=== PATIENT | female | born 1950 | race Caucasian/White ===

== ENCOUNTER 2019-10-03 14:11 | Outpatient (CLI) | payer OTHER, SELFPAY ==
--- NOTE | 2019-10-03 14:30 | XR_ITS ---
WS: [id number] ABDOMEN KUB CLINICAL INFORMATION: Renal/ureteral calculi. COMPARISON: CT 03/26/2019 and 05/21/2019 FINDINGS: Mild lumbar curve convex right. Cholecystectomy clips. Previously described left staghorn calculus no t seen today. No definite visualized renal or parenchymal calculi today. XR/XR KUB [id number] Impression: No definite renal or ureteral calculi
== END 2019-10-03 14:12 | disposition home or self-care (01) ==
LOC: RADWPI 14:17
PROVIDERS: Family Provider Family Medicine; PCP Family Medicine; Visit Provider Urology
DX: N20.0 Calculus of kidney (principal)
CPT/HCPCS: 74018; 81001

== ENCOUNTER → 2020-01-06 10:43 | Outpatient (BNVA) | payer OTHER, SELFPAY | PROVIDERS: Family Provider Family Medicine; PCP Family Medicine; Visit Provider Urology | DX: N20.9 Urinary calculus, unspecified (principal) | CPT/HCPCS: 80048; 81003; 82131; 82140; 82340; 82436; 82507; 82570; 83735; 83935; 84100; 84300; 84550 ==

== ENCOUNTER → 2020-02-10 07:59 | Outpatient (BNVA) | payer OTHER, SELFPAY | PROVIDERS: Family Provider Family Medicine; PCP Family Medicine; Visit Provider Urology | DX: Z01.89 Encounter for other specified special examinations (principal) | CPT/HCPCS: 81003; 82131; 82140; 82340; 82436; 82507; 82570; 83735; 83935; 84300 ==

== ENCOUNTER 2020-03-23 09:57 | Outpatient (CLI) | payer OTHER, SELFPAY ==
--- NOTE | 2020-03-23 09:45 | XR_ITS ---
WS: [id number] XR KUB [id number] REASON FOR EXAM: stone FINDINGS: The examination is unchanged compared to 10/03/2019. No renal calculi are identified. No other acute abnormality. XR/XR KUB 72051 IMPRESSION: No interval change compared to the previous examination. No renal calculi noted .
== END 2020-03-23 09:58 | disposition home or self-care (01) ==
PROVIDERS: PCP Family Medicine; Visit Provider Urology
DX: N20.9 Urinary calculus, unspecified (principal)
CPT/HCPCS: 74018; 81001

== ENCOUNTER 2020-04-03 12:35 | Outpatient (CLI) | payer OTHER, SELFPAY ==
--- NOTE | 2020-04-03 12:48 | USCV_ITS ---
Gavi Lama Age: 70 Gender: F : 1950 Exam Date: 04/03/2020 13:14 Ordering Phys: Arsenio Davila MD Technologist: Osmany Christine Exam Location: [facility]_ Indication: edema PROCEDURES: Comparison:. 05/22/19 Venous duplex imaging was performed in bilateral lower extremities. The following venous structures were evaluated: common femoral vein, profunda vein, proximal portion of the greater saphenous vein, superficial femoral vein, and the popliteal vein. In addition, the posterior tibial and peroneal trunk were evaluated. Serial compression, augmentation maneuvers, and spectral Doppler flow evaluation were performed. FINDINGS: There appears to be residual thrombus in the right popliteal vein. Slightly contracted thrombus may be subacute. All other veins imaged appear free of thrombus at this time. There is subcutaneous lower extremity edema noted. CONCLUSIONS Focal right popliteal subacute thrombus. Bilateral edema. Report called by Talon hourly shift manager, at time of exam. Dr. Gini Ayala DO (Electronically Signed) Final Date: 03 April 2020 13:48 S
== END 2020-04-03 12:36 | disposition home or self-care (01) ==
PROVIDERS: PCP Family Medicine; Visit Provider Family Medicine
DX: R60.0 Localized edema (principal); I82.431 Acute embolism and thrombosis of right popliteal vein
CPT/HCPCS: 93970

== ENCOUNTER 2020-04-16 11:54 | Outpatient (CLI) | payer OTHER, SELFPAY ==
--- NOTE | 2020-04-16 12:02 | NM_ITS ---
WS: [id number] NUCLEAR MEDICINE VENTILATION/PERFUSION LUNG SCAN HISTORY: PULMONARY EMBOLISM COMPARISON: Chest radiograph 04/16/2020. TECHNIQUE: Ventilation: 32.4 mCi of Technetium 99 DTPA aerosol inhaled. Perfusion: 4.7 mCi of technetium 99m MAA IV. Deposition of radionuclide centrally with mild heterogeneous distribution on the ventilatory portion of the scan. Radionuclide extends into the stomach due to contamination. Very minimal asymmetric distribution of the radionuclide on perfusion. There is focal mild matched up take in the central RIGHT lung posteriorly. All areas of heterogeneity are matched. NM/NM pul vent and perfus* [id number] IMPRESSION: Low probability pulmonary embolism.
--- NOTE | 2020-04-16 12:41 | XR_ITS ---
WS: [id number] Exam: XR chest 2V* [id number] Date/Time of Exam: 04/16/2020 12:41 PM Reason For Exam: PULMONARY EMBOLISM No priors. The lungs are fully expanded and clear. Normal cardiomediastinal structures and bony elements. No ple ural effusion. XR/XR chest 2V* [id number] IMPRESSION: 1. No acute cardiopulmonary finding.
== END 2020-04-16 11:55 | disposition home or self-care (01) ==
LOC: RAD 11:59
PROVIDERS: PCP Family Medicine; Visit Provider Family Medicine
DX: I26.99 Other pulmonary embolism without acute cor pulmonale (principal)
CPT/HCPCS: 71046; 78014; A9540; A9567

== ENCOUNTER 2020-04-29 09:49 | Outpatient (CLI) | payer OTHER, SELFPAY ==
--- NOTE | 2020-04-29 10:09 | CT_ITS ---
WS: [id number] CT scan of the chest Without IV contrast, CT scan of the abdomen and pelvis without IV contrast ora l . Additional two-dimensional coronal and sagittal reconstruction was performed. 04/29/2020 Clinical Data: ? MALIGNANCY, PULMONARY EMBOLISM Comparison: CT abdomen, 03/26/2019. DLP: 2465.[address] scans at [facility] use at least one of these dose optimization techniques: automat ed exposure control; mA and/or kV adjustment per patient size (includes targeted exams where dose is matched to clinical indication); or iterative reconstruction. Findings: Chest: No nodules, masses or effusions are seen. The heart size is normal with no pericardial effusion. No pneumothorax is present. Heart is slightly enlarged. The pulmonary arterial system and thoracic aorta demonstrate no abnormalities or dilatation s. There is no axillary or significant mediastinal adenopathy. There are calcified middle mediastinal ly mph nodes. There is no hilar adenopathy. There is a small hiatal hernia. Bones of the thorax show onl y osteoarthritic changes of the thoracic vertebral bodies. Abdomen/pelvis: The liver, adrenal glands and pancreas are normal. The gallbladder is absent with clips in the fossa. There is a low-density lesion in the anterior aspect of the spleen unchanged. The right kidney is small with a cortical cyst unchanged. There are small left renal cortical cysts. The previously noted staghorn calculus is no longer present. The abdominal aorta is normal in size with minimal calcification in the wall. No appendicitis or diverticulitis is seen. Oral contrast is in the stomach, small bowel and colon, an d there is no bowel dilatation. No abscess, adenopathy, ascites, mass, obstruction or free air is see n. The bladder is unremarkable. The uterus shows a small fibroid on the right side with calcification un changed. No inguinal hernia is seen. The bones of the lower thorax, lumbar spine, pelvis, and hips are normal. CT/CT chest abd pel wo con Impression: 1. Negative for acute cardiopulmonary changes. 2. Left staghorn calculus no longer present. 3. Small right kidney with cortical cysts unchanged. 4. Cholecystectomy. 5. Probable splenic cyst unchanged. 6. Pedunculated right uterine fibroid unchanged.
[2020-04-29] MEDS: iohexol 300 mg/mL 50 mL Btl PO (10:10)
== END 2020-04-29 09:50 | disposition home or self-care (01) ==
LOC: RADWPI 09:52
PROVIDERS: PCP Family Medicine; Visit Provider Family Medicine
DX: I26.99 Other pulmonary embolism without acute cor pulmonale (principal); D25.9 Leiomyoma of uterus, unspecified; Z90.49 Acquired absence of other specified parts of digestive tract
CPT/HCPCS: 71250; 74176; Q9967

== ENCOUNTER 2020-07-01 13:55 | Outpatient (CLI) | payer OTHER, SELFPAY ==
--- NOTE | 2020-07-01 14:00 | XR_ITS ---
WS: [id number] KUB, 07/01/2020 Clinical Data: UROLITHIASIS Comparison: KUB, 03/23/2020. Findings: No abnormal intraabdominal masses or calcifications are seen. There is no dilatated small bowel or ev idence of obstruction. There is a calcification overlying the right sacrum which is probably within a uterine leiomyoma. The re are clips in the right upper quadrant from a cholecystectomy. XR/XR KUB [id number] Impression: Negative KUB.
== END 2020-07-01 13:56 | disposition home or self-care (01) ==
LOC: RAD 14:02
PROVIDERS: PCP Family Medicine; Visit Provider Nurse Practitioner Family
DX: N20.9 Urinary calculus, unspecified (principal)
CPT/HCPCS: 74018; 81003

== ENCOUNTER → 2020-07-20 11:06 | Outpatient (BNVA) | payer OTHER, SELFPAY | PROVIDERS: PCP Family Medicine; Visit Provider Surgery | DX: Z01.812 Encounter for preprocedural laboratory examination (principal); N18.9 Chronic kidney disease, unspecified | CPT/HCPCS: 87635 ==

== ENCOUNTER 2020-07-22 09:42 | Day surgery (SDC) | payer OTHER, SELFPAY ==
[2020-07-21 13:04] VITALS: BMI 39.4
[2020-07-22] VITALS (8 sets, daily range): BP systolic 101–135; BP diastolic 52–96; PULSE 63–81; RESP 16–20; TEMP 36.6–36.9; O2SAT 92–97
[2020-07-22 10:08] LABS: Glucose Point of Care 161 mg/dL (70-110)
[2020-07-22] MEDS: sodium chloride 0.9% 1,000 ML 30 ML IV (10:14)
--- NOTE | 2020-07-22 10:34 | ANES.PREANE2 ---
Pre-Anesthetic Assessment Pre-Anesthetic Assessment: Height/Weight: Height 1.63 m Weight 104.326 kg Temp Pulse Resp BP Pulse Ox 97.8 F 72 16 135/96 95 07/22/20 09:56 07/22/20 09:56 07/22/20 09:56 07/22/20 09:56 07/22/20 09:56 Preop Diagnosis: CKD Proposed Procedure: Operation Date: 07/22/20 11:10 Proposed Procedures p Laparoscopic Peritoneal Cath Inserti 50050 N18.9(Not Applicable) - Carson Park MD Familial anesthetic complications: None Was Beta Bill taken within 24 hours: N/A Last intake: Intake Last Liquid Date 07/21/20 Last Liquid Time 05:30 Last Solid Date 07/21/20 Last Solid Time 22:00 Social: Social History: No alcohol and No tobacco Exam: Pre-Anes Outpt Exam: alert, oriented x 3, clear to auscultation bilaterally and regular rate & rhythm Airway: Cervical ROM: WNL MP: 3 Dentition: Full Pulmonary: Pulmonary: SOB Comments: O2 2 L prn NC CV/HEM: CV/HEM: DVT (elquis on monday) and HTN : : Chronic renal failure Metabolic: Metabolic: DM and Morbid obesity Anesthetic Plan: ASA status: 4 Anesthesia: General Risk of > 500 ml blood loss (7ml/kg in children): No Meds/Allergies Current Medications: Current Medications Generic Name Dose Route Start Last Admin Trade Name Freq PRN Reason Stop Dose Admin Sodium Chloride 1,000 mls @ 30 ml s/hr 07/22/20 10:00 07/22/20 10:14 Sodium Chloride 0.9% IV 07/23/20 09:59 30 mls/hr .Q24H MAG Administration PFSH Anesthesia PFSH: Medical History (Updated 07/13/20 @ 14:45 by Carson Park MD) Bilateral ureteral calculi Chronic anticoagulation Diabetes DVT (deep venous thrombosis) (~02/2020) HTN (hypertension), benign Staghorn calculus Urolithiasis Surgical History (Updated 07/13/20 @ 09:40 by Carson Park MD) History of removal of calculus of renal pelvis through percutaneous nephrostomy Hx of cholecystectomy S/P ureteral stent placement CYSTOSCOPY, URETEROSCOPY.LASER LITHOTRIPSY Status post colonoscopy (~03/2020) Status post laser lithotripsy of ureteral calculus Family History Father , AT AGE 84 CAD (coronary artery disease) Mother Hypertension Social History Smoking and tobacco status: never smoked Alcohol intake: never Marital status: Current occupational status: employed History of recent travel: No Data Anesthesia Other Labs: Laboratory Results - last 48 hr 07/22/20 10:05 POC Glucose 161 H Cardiac Studies: No Data to Display
--- NOTE | 2020-07-22 11:28 | W.PM.OPSUD ---
Surgery/Procedure H&P Update DATE OF PROCEDURE: July 22, 2020 DATE H&P PERFORMED: 07/13/20 H&P UPDATE INFORMATION: I have reviewed H&P completed within last 30 days, I have examined patient prior to procedure and No changes to prior documentation PREOP DIAGNOSIS: CKD PLANNED PROCEDURE: Operation Date: 07/22/20 11:10 Proposed Procedures p Laparoscopic Peritoneal Cath Inserti 97394 N18.9(Not Applicable) - Carson Park MD
[2020-07-22] MEDS: heparin, porcine 1,000 unit/mL INJ 10 mL 10000 UNIT IRRIGATION (13:50)
--- NOTE | 2020-07-22 14:14 | P.PCN_ITS ---
PACU note PACU note: VSS, Good respiratory effort, report to DRY PLASTERER Post-Anesthesia Exam: awake
--- NOTE | 2020-07-22 14:14 | PM.PACU ---
PACU note PACU note: VSS, Good respiratory effort, report to IP [place] Post-Anesthesia Exam: awake
[2020-07-22] MEDS: HYDROcodone-acetaminophen 5-325 mg Tablet 1 TAB PO (14:46)
--- NOTE | 2020-07-23 16:34 | PM.OP ---
Operative Report Date of procedure: July 22, 2020 Pre-op Diagnosis: CKD Post-op diagnosis: same Procedure Done: Laparoscopic placement of peritoneal dialysis catheter Pathology: none sent Surgeon: Carson Park Anesthesia: General Condition: stable Disposition: PACU Procedure: The patient was taken to the operating room and intubated under general anesthesia after IV antibiotic had been administered. The abdomen was prepped and draped in a sterile manner. Using 15 blade a 1 cm incision was made in the left upper quadrant and a Veress needle introduced to create 15 mm of pneumoperitoneum. Using Optiview technique, a 5 mm port was placed and a 5 mm 30? scope was introduced. Another 5 mm port was placed in the left lower quadrant at the level of the umbilicus in the midclavicular line. The pigtail peritoneal dialysis catheter was placed on the abdominal wall and the position marked, an introducer needle was passed through the abdominal wall to the right of the midline inferior to the umbilicus, guidewire passed through the introducer needle, the needle was removed and a dilator sheath was placed over the guidewire and inner dilator and guidewire was removed. The pigtail catheter was introduced as the peel-away sheath was removed with the tip of the catheter in the pelvis and the cuff within the rectus muscle. The catheter was tunneled proximally to exit in the right upper quadrant. A subcutaneous pocket was created. The catheter was attached to a saline bag and there was good inflow and outflow noted. 20 mL of 1:10,000 heparin was injected into the tube. The ports were removed under direct visualization and there was no bleeding from the port sites. The skin at the 5 mm port sites were closed using 4-0 Monocryl and Dermabond. Sterile dressings were applied at the catheter site. The patient was intubated and transferred to recovery room in stable condition. T
== END 2020-07-22 15:45 | disposition home or self-care (01) ==
PROVIDERS: PCP Family Medicine; Visit Provider Surgery
PROC: 0WHG43Z Insertion of Infusion Device into Peritoneal Cavity, Percutaneous Endoscopic Approach (ICD-10-PCS; CPT 49324; principal; 2020-07-22 11:10)
DX: E11.22 Type 2 diabetes mellitus with diabetic chronic kidney disease (principal); I12.9 Hypertensive chronic kidney disease with stage 1 through stage 4 chronic kidney disease, or unspecified chronic kidney disease; N18.9 Chronic kidney disease, unspecified; Z86.718 Personal history of other venous thrombosis and embolism; Z79.01 Long term (current) use of anticoagulants; E66.01 Morbid (severe) obesity due to excess calories; Z68.39 Body mass index [BMI] 39.0-39.9, adult; Z79.4 Long term (current) use of insulin
CPT/HCPCS: 49324; 12345; 36416; 82962; C1750; J0330; J0690; J1100; J1644; J2250; J2405; J2704; J2710; J3010; J3490; J7030

== ENCOUNTER 2021-01-08 08:23 | Outpatient (CLI) | payer MEDICARE, BC, SELFPAY ==
--- NOTE | 2021-01-08 08:29 | USCV_ITS ---
Gavi Lama Age: 70 Gender: F : 1950 Exam Date: 01/08/2021 08:41 Ordering Phys: Arsenio Davila MD Technologist: Jhony Abraham Exam Location: [facility] Indication: TIA Risk Factors: DIABETIC Previous Vascular Surgery: Right Brachial BP: / Left Brachial BP: / Right Left Velocity (cm/s) Spectral Plaque Velocity (cm/s) Spectral Plaque Syst/Diast Broadening Syst/Diast Broadening 81.60/ 24.30 Prox CCA 81.70 / 24.90 100.30/30.90 Mid CCA 77.00 / 21.30 97.00/ 24.30 Distal CCA 77.00 / 27.20 67.60/ 20.20 Prox ICA 77.00 / 26.00 78.10/ 27.40 Mid ICA 82.90 / 30.80 80.10/ 26.40 Distal ICA 67.50 / 17.80 137.80 ECA 84.10 0.80 ICA/CCA 1.01 Antegrade Vertebral Antegrade 57.80/ 18.30 cm/s 37.80/ 10.40 cm/s Tri Subclavian Tri 52.70 93.20 CONCLUSIONS Right ICA stenosis <50%. Left ICA stenosis <50%. Normal antegrade Doppler flow noted in the right vertebral artery. Normal antegrade Doppler flow noted in the left vertebral artery. Aren Gaines MD (Electronically Signed) Final Date: 08 January 2021 10:27 S
== END 2021-01-08 08:24 | disposition home or self-care (01) ==
LOC: RAD 08:25
PROVIDERS: PCP Family Medicine; Visit Provider Family Medicine
DX: G45.9 Transient cerebral ischemic attack, unspecified (principal); E11.9 Type 2 diabetes mellitus without complications
CPT/HCPCS: 93880

== ENCOUNTER 2021-02-10 13:11 | Outpatient (CLI) | payer MEDICARE, BC, SELFPAY ==
--- NOTE | 2021-02-10 13:21 | MM_ITS ---
WS: [id number] Exam: [place] [id number] Date/Time of Exam: 02/10/2021 1:33 PM Reason For Exam: SCREENING VIEWS: MLO and CC views both breasts. Comparison made with prior exam of 11/23/2010. Findings: There was no sign of mass, architectural distortion or suspicious calcification in either breast. Fa [place]ty MM/[place] [id number] Impression: BI-RADS: 2-Benign FOLLOW-UP: 1 Year Follow-up This mammogram was also analyzed by the Computer Aided Detection System R2 Imag e Tool Grinder.
== END 2021-02-10 13:12 | disposition home or self-care (01) ==
LOC: RADSHAW 13:19
PROVIDERS: PCP Family Medicine; Visit Provider Family Medicine
DX: Z12.31 Encounter for screening mammogram for malignant neoplasm of breast (principal)
CPT/HCPCS: 77067

== ENCOUNTER 2021-07-01 13:45 | Outpatient (CLI) | payer MEDICARE, BC, SELFPAY ==
--- NOTE | 2021-07-01 14:00 | XR_ITS ---
WS: [id number] XR KUB [id number] REASON FOR EXAM: UROLITHIASIS FINDINGS: No urinary tract calculi are identified. No urinary calculi or identified on the previous examination of 07/01/2020. No other significant abnormality of the abdomen. XR/XR KUB [id number] IMPRESSION: No urinary tract calculi identified.
== END 2021-07-01 13:46 | disposition home or self-care (01) ==
LOC: RAD 13:50
PROVIDERS: PCP Family Medicine; Visit Provider Urology
DX: N20.9 Urinary calculus, unspecified (principal)
CPT/HCPCS: 74018; 81003; 87086

== ENCOUNTER 2021-08-20 12:03 | Outpatient (CLI) | payer MEDICARE, BC, SELFPAY ==
--- NOTE | 2021-08-20 12:17 | XR_ITS ---
WS: [id number] KUB, AP view, 08/20/2021 Clinical Data: EVAL FOR KINKING OF PD CATHETER/END STAGE OF RENAL DZ Comparison: KUB, 07/01/2021. Findings: No abnormal intraabdominal masses or calcifications are seen. There is no dilatated small bowel or ev idence of obstruction. The peritoneal dialysis catheter remains in same position. No kinking of the catheter is seen. There are clips in the right upper quadrant from a cholecystectomy. XR/XR KUB 23675 Impression: No narrowing or kinking of the peritoneal dialysis catheter.
--- NOTE | 2021-08-20 12:17 | XR_ITS ---
WS: [id number] Pelvis, AP view, 08/20/2021 Clinical Data: EVAL FOR CONSTIPATION OR OBSTRUCTION/END STAGE OF RENAL DZ Comparison: None. Findings: No fractures or dislocations are seen. The SI joints and pubic symphysis are intact. The soft tissues are not remarkable. Peritoneal dialysis catheter shows no kinking or evidence of obstruction. XR/XR pelvis 1-2V* [id number] Impression: No kinking or change in position of peritoneal dialysis catheter.
== END 2021-08-20 12:04 | disposition home or self-care (01) ==
PROVIDERS: PCP Family Medicine; Visit Provider Internal Medicine Nephrology
DX: T85.691A Other mechanical complication of intraperitoneal dialysis catheter, initial encounter (principal)
CPT/HCPCS: 72170; 74018

== ENCOUNTER 2021-08-23 09:29 | Outpatient (CLI) | payer MEDICARE, BC, SELFPAY ==
--- NOTE | 2021-08-23 09:37 | XRR_ITS ---
PROCEDURE INFORMATION: Exam: XR Abdomen Exam date and time: 08/23/2021 9:37 AM Age: 71 years old Clinical indication: Device placement; Non-vascular device; Other: Dialysis catheter not draining; Prior surgery; Additional info: Z99.2 - dependence on renal dialysis TECHNIQUE: Imaging protocol: XR of the abdomen. Views: Frontal supine view of the abdomen. 1 View. COMPARISON: CR XR KUB [id number] 08/20/2021 12:28 PM FINDINGS: Tubes, catheters and devices: A peritoneal dialysis catheter is looped in the right pelvis with tip overlying the right iliac bone. Gastrointestinal tract: Nonobstructive bowel gas pattern. Intraperitoneal space: No gross free air. Organs: Probable prior cholecystectomy. Bones/joints: No gross acute fracture. XR/XR abdomen 1V* [id number] IMPRESSION: A peritoneal dialysis catheter is looped in the right pelvis with tip overlying the right iliac bone.
== END 2021-08-23 09:30 | disposition home or self-care (01) ==
LOC: RAD 09:32
PROVIDERS: PCP Family Medicine; Visit Provider Surgery
DX: E11.65 Type 2 diabetes mellitus with hyperglycemia (principal); E11.22 Type 2 diabetes mellitus with diabetic chronic kidney disease; N18.6 End stage renal disease; E78.2 Mixed hyperlipidemia; Z79.4 Long term (current) use of insulin
CPT/HCPCS: 74018; 87635; 99204

== ENCOUNTER 2021-08-25 10:59 | Day surgery (SDC) | payer MEDICARE, BC, SELFPAY ==
[2021-08-24 13:24] VITALS: BMI 40.1
--- NOTE | 2021-08-25 11:05 | W.PM.OPSUD ---
Surgery/Procedure H&P Update DATE OF PROCEDURE: August 25, 2021 DATE H&P PERFORMED: 08/23/21 H&P UPDATE INFORMATION: I have reviewed H&P completed within last 30 days, I have examined patient prior to procedure and No changes to prior documentation PREOP DIAGNOSIS: Nonfunctioning peritoneal dialysis catheter PLANNED PROCEDURE: Operation Date: 08/25/21 12:30 Proposed Procedures p Laparoscopy Diagnostic 19566/43664/z99.2(Not Applicable) - Carson Park MD s Possible Peritoneal Catheter exchange(Not Applicable) - Carson Park MD
[2021-08-25 11:15] VITALS: BP 138/70; PULSE 70; RESP 18; TEMP 37.1; O2SAT 97
--- NOTE | 2021-08-25 11:26 | ANES.PREANE2 ---
Pre-Anesthetic Assessment Height/Weight: Height 1.6 m Weight 102.965 kg Temp Pulse Resp BP Pulse Ox 98.7 F 70 18 138/70 97 08/25/21 11:15 08/25/21 11:15 08/25/21 11:15 08/25/21 11:15 08/25/21 11:15 Preop Diagnosis: Nonfunctioning peritoneal dialysis catheter Operation Date: 08/25/21 12:30 Proposed Procedures p Laparoscopy Diagnostic 20745/67528/z99.2(Not Applicable) - Carson Park MD s Possible Peritoneal Catheter exchange(Not Applicable) - Carson Park MD Familial anesthetic complications: None Was Beta Bill taken within 24 hours: N/A Was Clonidine taken within 24 hours: N/A Social No alcohol and No tobacco Exam alert, oriented x 3, clear to auscultation bilaterally and regular rate & rhythm Airway Submandibular: within normal limits Cervical ROM: within normal limits Mallampati: Class II Dentition: chipped History/ROS No significant complaints Pulmonary None reported CV/HEM Hypertension DVT hx on apixaban last dose 08/23/2021 Chronic Renal Failure Nephrolithiasis Hepatic None reported GI None reported Metabolic Diabetes Mellitus [facility] None reported Neuropsych None reported Anesthetic Plan ASA status: 3 Anesthesia: Anesthesia Evaluation and General Other: We discussed risk and benefits of general anesthesia including PONV, sore throat (sometimes severe), corneal abrasion, positioning and peripheral nerve injuries, life threatening allergic reaction, post operative ICU admission requiring prolonged intubation, stroke, heart attack, , and rare incidences of recall. Patient consents to proceed with general anesthesia. Risk of > 500 ml blood loss (7ml/kg in children): No Medications/Allergies Home Medications Medication Instructions Recorded Confirmed Last Taken Type apixaban 5 mg tablet (Eliquis) 5 mg PO BID 10/03/19 08/24/21 08/22/21 History docusate sodium 100 mg capsule See Rx Instructions .ROUTE 04/01/21 08/25/21 08/24/21 Rx (Stool Softener) .COMPLEX #30 each bumetanide 2 mg tablet 2 mg PO BID 07/01/21 08/25/21 08/24/21 History escitalopram oxalate 10 mg tablet 10 mg PO DAILY 07/01/21 08/25/21 08/24/21 History insulin glargine 100 unit/mL (3 70 unit SUBCUT BID ml 07/01/21 08/25/21 08/24/21 History mL) subcutaneous pen (Lantus Solostar U-100 Insulin) metolazone 5 mg tablet 5 mg PO .mon and thurs tab 07/01/21 08/25/21 08/24/21 History spironolactone 50 mg tablet 100 mg PO DAILY tab 07/01/21 08/25/21 08/24/21 History vit B,C-folic ac 800 mcg-zinc 12.5 1 tab PO .on dialysis days tab 07/01/21 08/24/21 Unknown History mg-selen-D3 2,000 unit-vit E tablet (RenaPlex-D) atorvastatin 40 mg tablet 40 mg PO DAILY #90 tab 08/23/21 08/25/21 08/24/21 Rx hydrocodone 5 mg-acetaminophen 325 1 tab PO Q6H PRN #20 tab 08/25/21 Unknown Rx mg tablet Allergies Allergy/AdvReac Type Severity Reaction Status Date / Time No Known Allergies Allergy Verified 08/24/21 13:20 PFSH Anesthesia Medical History Bilateral ureteral calculi Chronic anticoagulation Diabetes DVT (deep venous thrombosis) (~02/2020) HTN (hypertension), benign Staghorn calculus Urolithiasis Surgical History History of removal of calculus of renal pelvis through percutaneous nephrostomy Hx of cholecystectomy Peritoneal dialysis catheter in situ (07/22/20) S/P ureteral stent placement CYSTOSCOPY, URETEROSCOPY.LASER LITHOTRIPSY Status post colonoscopy (~03/2020) Status post laser lithotripsy of ureteral calculus Family History Father , AT AGE 84 CAD (coronary artery disease) Mother Hypertension Social History Smoking and tobacco status: never smoked Alcohol intake: never Marital status: Current occupational status: retired History of recent travel: No Data Anesthesia : 08/25/21 11:39 08/25/21 11:39 Cardiac Studies: No Data to Display
--- NOTE | 2021-08-25 11:29 | ECG_ITS ---
[facility] Test Date: 2021-08-25 Pat Name: Gavi Lama Department: Room: Gender: Female Client Solutions Manager: : 1950 Requested By: Theodore Fuller Order Number: [id number] Edilberto MD: Isaac Wilcox M.D. Measurements Intervals Clute Rate: 79 P: 65 MO: 220 QRS: -18 QRSD: 83 T: 21 QT: 396 QTc: 454 Interpretive Statements SINUS RHYTHM WITH SINUS ARRHYTHMIA WITH FIRST DEGREE AV BLOCK LOW QRS VOLTAGE IN PRECORDIAL LEADS [QRS DEFLECTION < 1.0 mV IN CHEST LEADS] POSSIBLE ANTERIOR MYOCARDIAL INFARCTION , PROBABLY OLD [30 ms Q WAVE IN V3/V4, OR R < 0.2 mV IN V4] Compared to ECG 05/24/2019 14:47:46 First degree AV block now present Low QRS voltage now present Left anterior fascicular block no longer present Myocardial infarct finding still present Electronically Signed On 08-25-2021 23:08:11 ROBOTYPE OPERATOR by Isaac Wilcox M.D. [id number]
[2021-08-25 11:43] LABS: Glucose Point of Care 206 mg/dL (70-110)
[2021-08-25 11:47] LABS: Basophils # 0.1 10^3/uL (0.0-0.1); Basophils % 0.6 %; Eosinophils # 0.4 10^3/uL (0.0-0.8); Eosinophils % 3.7 %; Hematocrit 42.3 % (37.0-47.0); Hemoglobin 13.5 g/dL (11.5-15.3); Lymphocytes % 27.9 %; Mean Corpuscular HGB Conc 31.9 g/dL (30.0-36.0); Mean Corpuscular Hemoglobin 33.2 pg (28.0-34.0); Mean Corpuscular Volume 103.9 fl (81-99); Mean Platelet Volume 10.4 fL (7.4-10.4); Monocytes # 0.8 10^3/uL (0.2-0.9); Monocytes % 7.5 %; Neutrophils # 6.43 10^3/uL (1.8-7.7); Neutrophils % 59.5 %; Nucleated Red Blood Cells % 0 %; Platelet Count 337 10^3/cmm (130-400); Red Blood Count 4.07 10^6/uL (4.1-5.3); Red Cell Distribution Width 14.8 % (12.1-15.1); White Blood Count 10.8 10^3/uL (4.0-10.0)
[2021-08-25] MEDS: insulin regular-human 100 units/1 mL 4 UNIT IVP (11:51)
[2021-08-25] MEDS: sodium chloride 0.9% 1,000 ML 30 ML IV (12:04)
[2021-08-25] MEDS: heparin, porcine 1,000 unit/mL INJ 10 mL 10000 UNIT INJECTION (13:00)
[2021-08-25 13:33] VITALS: BP 135/78; PULSE 90; RESP 16; TEMP 36.4; O2SAT 90
[2021-08-25 13:38] VITALS: BP 130/79; PULSE 80; RESP 20; O2SAT 93
[2021-08-25 13:43] VITALS: BP 126/77; PULSE 79; RESP 21; O2SAT 95
[2021-08-25 13:49] VITALS: BP 125/76; PULSE 80; RESP 22; TEMP 36.4; O2SAT 95
[2021-08-25 13:50] LABS: Glucose Point of Care 134 mg/dL (70-110)
--- NOTE | 2021-08-25 13:51 | PM.OP ---
Operative Report Date of procedure: August 25, 2021 Pre-op diagnosis: Nonfunctioning peritoneal dialysis catheter Post-op diagnosis: Peritoneal dialysis catheter tip repositioned in the pelvis posterior to the uterus. The catheter itself was patent Procedure done: Diagnostic laparoscopy with repositioning of the peritoneal dialysis catheter Surgeon: Carson Park Anesthesia: General Condition: stable Disposition: PACU Procedure: The patient was taken to the operating room and placed under general anesthesia after IV antibiotic had been administered. The catheter itself was wrapped in Betadine gauze and the abdomen was prepped and draped in a sterile manner. Using a 15 blade a 1 cm incision was made in the left upper quadrant over the prior scar, subcutaneous tissue was divided and pneumoperitoneum was created using Verres needle. Using Optiview technique a 5 mm port was placed and 15 mm of pneumoperitoneum was created. Under direct visualization, another 5 mm port was placed in the left lower quadrant. The catheter tip was noted in the right lower quadrant. The catheter itself flushed easily with hep saline and the tip was repositioned within the pelvis posterior to the uterus. The catheter was attached to 100 cc saline bag which drained well under gravity. The catheter was finally flushed with 5 cc of 1: 1000 heparin. Both ports were removed under direct visualization after pneumoperitoneum was released. The subcutaneous tissues were approximated using interrupted 3-0 Vicryl suture and skin was closed using a running subcuticular 4-0 Monocryl suture and Dermabond. 10 cc of 0.5% Marcaine was infiltrated at the incision sites. The patient was extubated and transferred to recovery room in stable condition.
[2021-08-25 13:54] VITALS: BP 116/71; PULSE 76; RESP 20; TEMP 36.4; O2SAT 92
--- NOTE | 2021-08-25 13:57 | ANE.PACU2 ---
Inpatient post-anesthesia follow up: Airway intact: Yes Vital signs: Temperature 97.6 F Pulse Rate 76 Respiratory Rate 20 Blood Pressure 116/71 Pulse Oximetry 92 Oxygen Delivery Me thod Room Air Oxygen Flow Rate 8 Fraction of Inspir ed Oxygen Hydration adequate: Yes Nausea and vomiting: No Pain level: 1 Mental status: Baseline
[2021-08-25] MEDS: HYDROcodone-acetaminophen 5-325 mg Tablet 1 TAB PO (14:30)
== END 2021-08-25 14:51 | disposition home or self-care (01) ==
PROVIDERS: Anesthesiology; PCP Family Medicine; Visit Provider Surgery
PROC: (CPT 49320; principal; 2021-08-25 12:30)
DX: T85.611A Breakdown (mechanical) of intraperitoneal dialysis catheter, initial encounter (principal); I10 Essential (primary) hypertension; Z86.718 Personal history of other venous thrombosis and embolism; E11.9 Type 2 diabetes mellitus without complications; Z79.4 Long term (current) use of insulin
CPT/HCPCS: 49325; 36415; 36416; 82962; 85025; 93005; J0330; J0690; J1100; J1644; J1815; J2405; J2704; J3010; J3490; J7030

== ENCOUNTER → 2021-11-25 13:35 | Outpatient (BNVA) | payer MEDICARE, BC, SELFPAY | PROVIDERS: PCP Family Medicine; Visit Provider Internal Medicine | DX: E11.65 Type 2 diabetes mellitus with hyperglycemia (principal); E11.22 Type 2 diabetes mellitus with diabetic chronic kidney disease; N18.6 End stage renal disease; E78.2 Mixed hyperlipidemia; Z79.4 Long term (current) use of insulin | CPT/HCPCS: 99215 ==

== ENCOUNTER 2022-02-24 10:02 | Outpatient (CLI) | payer MEDICARE, BC, SELFPAY ==
--- NOTE | 2022-02-24 10:07 | MM_ITS ---
WS: [id number] Bilateral screening 3D tomosynthesis digital mammogram, 02/24/2022 Clinical Data: SCREENING Comparison: 02/10/2021, 11/23/2010. Findings: The breast parenchymal pattern shows fibroglandular tissue. No spiculated masses or clustered calcifi cations are seen. There are no secondary signs of carcinoma. There are mole markers on both breasts. MM/[place] [id number] Impression: 1. Negative bilateral mammogram unchanged. 2. Recommend annual screening mammograms. BIRADS: 1-Negative FOLLOW UP: 1 Year Follow-up The CAD mechanical car checker was used.
== END 2022-02-24 10:03 | disposition home or self-care (01) ==
LOC: RAD 10:04
PROVIDERS: PCP Family Medicine; Visit Provider Family Medicine
DX: Z12.31 Encounter for screening mammogram for malignant neoplasm of breast (principal)
CPT/HCPCS: 77063; 77067

== ENCOUNTER → 2022-03-01 12:52 | Outpatient (BNVA) | payer MEDICARE, BC, SELFPAY | PROVIDERS: PCP Family Medicine; Visit Provider Internal Medicine | DX: E11.65 Type 2 diabetes mellitus with hyperglycemia (principal); E11.22 Type 2 diabetes mellitus with diabetic chronic kidney disease; N18.6 End stage renal disease; E78.2 Mixed hyperlipidemia; Z79.4 Long term (current) use of insulin | CPT/HCPCS: 99214 ==

== ENCOUNTER → 2022-04-01 09:03 | Outpatient (BNVA) | payer MEDICARE, BC, SELFPAY | PROVIDERS: PCP Family Medicine; Visit Provider Internal Medicine | DX: E11.22 Type 2 diabetes mellitus with diabetic chronic kidney disease (principal); E11.65 Type 2 diabetes mellitus with hyperglycemia; E78.2 Mixed hyperlipidemia; N18.6 End stage renal disease; Z79.4 Long term (current) use of insulin | CPT/HCPCS: 99214 ==

== ENCOUNTER → 2022-05-31 13:22 | Outpatient (BNVA) | payer MEDICARE, BC, SELFPAY | PROVIDERS: PCP Family Medicine; Visit Provider Internal Medicine | DX: E11.65 Type 2 diabetes mellitus with hyperglycemia (principal); E11.22 Type 2 diabetes mellitus with diabetic chronic kidney disease; E78.2 Mixed hyperlipidemia; N18.6 End stage renal disease; Z79.4 Long term (current) use of insulin | CPT/HCPCS: 99214 ==

== ENCOUNTER → 2022-06-21 08:37 | Outpatient (BNVA) | payer MEDICARE, BC, SELFPAY | PROVIDERS: PCP Family Medicine; Visit Provider Internal Medicine | DX: E11.65 Type 2 diabetes mellitus with hyperglycemia (principal); E11.22 Type 2 diabetes mellitus with diabetic chronic kidney disease; E78.2 Mixed hyperlipidemia; N18.6 End stage renal disease; Z79.4 Long term (current) use of insulin | CPT/HCPCS: 99214 ==

== ENCOUNTER → 2022-07-06 15:08 | Outpatient (BNVA) | payer MEDICARE, BC, SELFPAY | PROVIDERS: PCP Family Medicine; Visit Provider Surgery | DX: Z87.448 Personal history of other diseases of urinary system (principal) | CPT/HCPCS: 99213 ==

== ENCOUNTER 2022-07-18 12:02 | Outpatient (CLI) | payer MEDICARE, BC, SELFPAY ==
[2022-07-18 13:03] LABS: Basophils # 0.1 10^3/uL (0.0-0.1); Basophils % 0.5 %; Eosinophils # 0.4 10^3/uL (0.0-0.8); Eosinophils % 3.5 %; Hematocrit 45.6 % (37.0-47.0); Hemoglobin 13.9 g/dL (11.5-15.3); Lymphocytes # 2.4 10^3/uL (0.8-4.8); Lymphocytes % 20.4 %; Mean Corpuscular HGB Conc 30.5 g/dL (30.0-36.0); Mean Corpuscular Hemoglobin 32.1 pg (28.0-34.0); Mean Corpuscular Volume 105.3 fl (81-99); Monocytes # 0.7 10^3/uL (0.2-0.9); Monocytes % 6.3 %; Neutrophils % 68.8 %; Nucleated Red Blood Cells % 0 %; Platelet Count 257 10^3/cmm (130-400); Red Blood Count 4.33 10^6/uL (4.1-5.3); Red Cell Distribution Width 14.9 % (12.1-15.1); White Blood Count 11.5 10^3/uL (4.0-10.0)
[2022-07-18 13:15] LABS: Albumin Level 3.9 g/dL (3.5-5.2); Anion Gap 15.7 (5-19); Blood Urea Nitrogen 29 mg/dL (8-23); Carbon Dioxide 29 mmol/L (22-29); Chloride 101 mmol/L (98-107); Glomerular Filtration Rate 24.6 mL/min (90-130); Glucose 324 mg/dL (65-115); Phosphorus 2.5 mg/dL (2.5-4.5); Potassium 4.7 mmol/L (3.5-5.1); Sodium 141 mmol/L (136-145)
[2022-07-18 13:18] LABS: Creatinine Urine, Random 34 mg/dL (28-217); Microalbum Creatinine Ratio Ur 29 mg/dL (0-20); Microalbumin Random Urine 1 ug/dL (0-20)
[2022-07-18 13:27] LABS: Calcium 9.1 mg/dL (8.5-10.5)
[2022-07-18 13:34] LABS: Parathyroid Hormone 135.7 pg/mL (15-65)
[2022-07-19 07:39] LABS: Alanine Aminotransferase 15 U/L (0-33); Albumin Level 3.8 g/dL (3.5-5.2); Alkaline Phosphatase 90 U/L (35-105); Aspartate Amino Transferase 16 U/L (0-32); Blood Urea Nitrogen 30 mg/dL (8-23); Calcium 8.9 mg/dL (8.5-10.5); Carbon Dioxide 28 mmol/L (22-29); Chloride 100 mmol/L (98-107); Chol HDL Ratio 3.83 mg/dL (0.0-4.40); Cholesterol 153 mg/dL (0-200); Globulin 3.2 g/dL (1.3-4.6); Glomerular Filtration Rate 24.6 mL/min (90-130); Glucose 329 mg/dL (65-115); HDL Cholesterol 40 mg/dL (60-100); LDL Cholesterol Calculated 54 mg/dL (50-129); LDL HDL Ratio 1.35 RATIO (0.00-3.22); Osmolality Calculated 309 mOsm/kg (285-295); Sodium 140 mmol/L (136-145); Total Bilirubin 0.4 mg/dL (0.15-1.2); Triglycerides 296 mg/dL (0-150)
[2022-07-19 07:40] LABS: Anion Gap 17.3 (5-19); Estmated Average Glucose 203; Hemoglobin A1C 8.7 % (4.0-6.0); Potassium 5.3 mmol/L (3.5-5.1)
== END 2022-07-18 12:03 | disposition home or self-care (01) ==
LOC: LAB 12:07
PROVIDERS: Internal Medicine; PCP Family Medicine; Visit Provider Internal Medicine
DX: E11.65 Type 2 diabetes mellitus with hyperglycemia (principal); E78.2 Mixed hyperlipidemia; I10 Essential (primary) hypertension; N18.4 Chronic kidney disease, stage 4 (severe)
CPT/HCPCS: 36415; 80053; 80061; 80069; 82044; 82310; 83036; 83970; 85025

== ENCOUNTER 2022-07-26 11:44 | Outpatient (CLI) | payer MEDICARE, BC, SELFPAY ==
--- NOTE | 2022-07-26 11:51 | XRR_ITS ---
PROCEDURE INFORMATION: Exam: XR Chest Exam date and time: 07/26/2022 12:09 PM Age: 72 years old Clinical indication: Shortness of breath; Additional info: Hypoxia TECHNIQUE: Imaging protocol: Radiologic exam of the chest. Views: 2 views. COMPARISON: [place] [id number] 04/29/2020 11:35 AM 2. CR XR chest 2V* [id number] 04/16/2020 1:01 PM FINDINGS: Lungs: There is focal enlargement of the right hilum. Pleural spaces: There is no pleural effusion or pneumothorax. Heart/Mediastinum: Cardiomediastinal contours are otherwise unremarkable. There is no consolidation. Bones/joints: Bones are unremarkable. XR/XR chest 2V* [id number] IMPRESSION: 1. No acute findings. 2. Focal right hilar enlargement. Possible mass, lymphadenopathy or enlarged pulmonary artery. This finding is more apparent than on 04/16/2020 chest radiograph and no correlative abnormality is identified on 04/29/[address] Recommend nonemergent chest CT follow-up.
== END 2022-07-26 11:45 | disposition home or self-care (01) ==
LOC: RAD 11:47
PROVIDERS: PCP Family Medicine; Visit Provider Family Medicine
DX: R09.02 Hypoxemia (principal)
CPT/HCPCS: 71046

== ENCOUNTER 2022-08-22 11:51 | Outpatient (CLI) | payer MEDICARE, BC, SELFPAY ==
[2022-08-22 12:32] LABS: Basophils % 0.4 %; Eosinophils # 0.3 10^3/uL (0.0-0.8); Eosinophils % 3.1 %; Hematocrit 45.6 % (37.0-47.0); Hemoglobin 13.8 g/dL (11.5-15.3); Lymphocytes # 1.9 10^3/uL (0.8-4.8); Lymphocytes % 20.2 %; Mean Corpuscular HGB Conc 30.3 g/dL (30.0-36.0); Mean Corpuscular Hemoglobin 30.9 pg (28.0-34.0); Mean Corpuscular Volume 102.2 fl (81-99); Mean Platelet Volume 10.8 fL (7.4-10.4); Monocytes # 0.6 10^3/uL (0.2-0.9); Monocytes % 6.9 %; Nucleated Red Blood Cells % 0 %; Platelet Count 238 10^3/cmm (130-400); Red Blood Count 4.46 10^6/uL (4.1-5.3); Red Cell Distribution Width 15.1 % (12.1-15.1); White Blood Count 9.3 10^3/uL (4.0-10.0)
[2022-08-22 13:37] LABS: Parathyroid Hormone 136.2 pg/mL (15-65)
[2022-08-22 13:47] LABS: 25 Hydroxy Vitamin D 45 ng/mL (30-100); Albumin Level 3.7 g/dL (3.5-5.2); Anion Gap 13.7 (5-19); Blood Urea Nitrogen 29 mg/dL (8-23); Calcium 9.1 mg/dL (8.5-10.5); Carbon Dioxide 29 mmol/L (22-29); Chloride 104 mmol/L (98-107); Glomerular Filtration Rate 26.1 mL/min (90-130); Glucose 340 mg/dL (65-115); Phosphorus 3.1 mg/dL (2.5-4.5); Potassium 4.7 mmol/L (3.5-5.1); Sodium 142 mmol/L (136-145)
== END 2022-08-22 11:52 | disposition home or self-care (01) ==
PROVIDERS: PCP Family Medicine; Visit Provider Internal Medicine Nephrology
DX: N18.4 Chronic kidney disease, stage 4 (severe) (principal); D63.1 Anemia in chronic kidney disease
CPT/HCPCS: 36415; 80069; 82306; 82310; 83970; 85025

== ENCOUNTER 2022-08-23 10:49 | Outpatient (CLI) | payer MEDICARE, BC, SELFPAY ==
[2022-08-23 11:39] LABS: Creatinine Urine, Random 160 mg/dL (28-217); Microalbumin Random Urine 8 ug/dL (0-20)
[2022-08-23 11:40] LABS: Microalbum Creatinine Ratio Ur 50 mg/dL (0-20)
== END 2022-08-23 10:50 | disposition home or self-care (01) ==
LOC: LAB 10:56
PROVIDERS: Internal Medicine; PCP Family Medicine; Visit Provider Internal Medicine Nephrology
DX: E11.65 Type 2 diabetes mellitus with hyperglycemia (principal); E78.2 Mixed hyperlipidemia; N18.4 Chronic kidney disease, stage 4 (severe); D63.1 Anemia in chronic kidney disease
CPT/HCPCS: 82044

== ENCOUNTER 2022-08-23 10:59 | Outpatient (CLI) | payer MEDICARE, BC, SELFPAY ==
--- NOTE | 2022-08-23 11:00 | CT_ITS ---
WS: [id number] CT CHEST WITHOUT INTRAVENOUS CONTRAST HISTORY: Significant dyspnea and hypoxia with abnormal chest x-ray TECHNIQUE: Contiguous 5 mm axial imaging performed on the thorax. Coronal and sagittal reformats are submitted. All CT scans at [facility] use at least one of these dose optimization techniques: automated exposure control; mA and/or kV adjustment per patient size (includes targeted exams where dose is matched to clinical indication); or iterative reconstruction. CONTRAST: None DLP: 600.54 mGy.cm COMPARISON: Chest radiograph 07/26/[address] 04/29/2020. Lungs and central airway: Benign calcified granuloma LEFT lower lobe. There is mild pulmonary congest ion. No pneumonia. Pleura: Normal. No pleural effusion. Heart and pericardium: Mild enlargement of the heart. There is mild fat stranding around the heart wh ich is secondary to cardiac motion. No effusion. Mediastinum and supa: Fullness at the RIGHT hilum is reidentified as seen on the recent chest radiogr aph. Without IV contrast cannot exclude small nodes. Majority of fullness is related to prominent hil ar structures. There is asymmetric enlargement of the RIGHT pulmonary arteries as compared to the LEF T. Very similar to the prior study. Vessels: Mild atherosclerosis aorta. No aneurysm. Pulmonary artery size is 3.4 cm. Chest wall and lower neck: Mild thyromegaly. Upper abdomen: Prior cholecystectomy. Low-attenuation lesion in the spleen measures 2.5 x 2.1 cm. Not ed on the prior study also. No adrenal mass. Severe atrophy RIGHT kidney. Osseous structures: Increase in thoracic kyphosis. CT/CT chest wo con [id number] IMPRESSION: 1. No pneumonia. 2. Fullness at the RIGHT hilum appears all related to prominent pulmonary david ry. Without IV contrast cannot exclude small lymph nodes. 3. Mild cardiac enlargement. 4. If there is concern for pulmonary embolism VQ scan may be beneficial if pat ient is unable to have a postcontrast examination. 5. Prior cholecystectomy.
== END 2022-08-23 11:00 | disposition home or self-care (01) ==
PROVIDERS: PCP Family Medicine; Visit Provider Family Medicine
DX: R06.00 Dyspnea, unspecified (principal); I51.7 Cardiomegaly
CPT/HCPCS: 71250

== ENCOUNTER 2022-09-05 11:55 | Outpatient (CLI) | payer MEDICARE, BC, SELFPAY ==
--- NOTE | 2022-09-05 12:00 | NM_ITS ---
WS: [id number] NUCLEAR MEDICINE LUNG VENTILATION AND PERFUSION CLINICAL INFORMATION: r/o PE TECHNIQUE: Ventilation/perfusion lung scan with 5.2 mCi MAA and 32.4 mCi technetium 99m DTPA. COMPARISON: None. FINDINGS: Patchy radiotracer deposition on the ventilatory images. Patchy radiotracer deposition along the cent ral bronchi. Numerous matched peripheral wedge-shaped perfusion defects bilaterally more prominent in the lower lobes. No definite mismatched ventilation/perfusion defects. No other suspicious findings. NM/NM pul vent and perfus* [id number] IMPRESSION: 1. Intermediate probability for pulmonary embolus. Consider further evaluation with CTA chest if renal function allows.
--- NOTE | 2022-09-05 12:15 | XR_ITS ---
WS: [id number] EXAMINATION: XR chest 2V* [id number] REASON FOR EXAM: DYSPNEA COMPARISON: 07/26/2022 ORDER DATE: 09/05/2022 12:15 PM FINDINGS: Lungs: There is focal enlargement of the right hilum. Pleural spaces: There is no pleural effusion or pneumothorax. Heart/Mediastinum: Cardiomediastinal contours are otherwise unremarkable with atherosclerotic aortic change. There is no consolidation. Bones/joints: Bones are unremarkable. XR/XR chest 2V* [id number] IMPRESSION: 1. No acute findings. No interval change from previous 2. Focal right hilar enlargement. Possible mass, lymphadenopathy or enlarged pulmonary artery. A noncontrast CT study on 08/23/2022 suggests this is due to en largement of the pulmonary artery.
== END 2022-09-05 11:56 | disposition home or self-care (01) ==
LOC: RAD 12:00
PROVIDERS: PCP Family Medicine; Visit Provider Family Medicine
DX: R06.00 Dyspnea, unspecified (principal)
CPT/HCPCS: 71046; 78014; A9540; A9567

== ENCOUNTER 2022-09-22 11:09 | Outpatient (CLI) | payer MEDICARE, BC, SELFPAY ==
[2022-09-22 12:09] LABS: Basophils % 0.5 %; Eosinophils # 0.3 10^3/uL (0.0-0.8); Eosinophils % 3.2 %; Hematocrit 46.1 % (37.0-47.0); Hemoglobin 13.6 g/dL (11.5-15.3); Lymphocytes % 22.6 %; Mean Corpuscular HGB Conc 29.5 g/dL (30.0-36.0); Mean Corpuscular Hemoglobin 30.5 pg (28.0-34.0); Mean Corpuscular Volume 103.4 fl (81-99); Mean Platelet Volume 10.7 fL (7.4-10.4); Monocytes # 0.6 10^3/uL (0.2-0.9); Neutrophils # 5.73 10^3/uL (1.8-7.7); Neutrophils % 66.4 %; Nucleated Red Blood Cells % 0 %; Platelet Count 240 10^3/cmm (130-400); Red Blood Count 4.46 10^6/uL (4.1-5.3); Red Cell Distribution Width 15.4 % (12.1-15.1); White Blood Count 8.6 10^3/uL (4.0-10.0)
[2022-09-22 12:35] LABS: Albumin Level 3.6 g/dL (3.5-5.2); Anion Gap 10.7 (5-19); Blood Urea Nitrogen 30 mg/dL (8-23); Calcium 8.5 mg/dL (8.5-10.5); Carbon Dioxide 32 mmol/L (22-29); Chloride 106 mmol/L (98-107); Glomerular Filtration Rate 29.7 mL/min (90-130); Glucose 206 mg/dL (65-115); Phosphorus 3.2 mg/dL (2.5-4.5); Potassium 4.7 mmol/L (3.5-5.1); Sodium 144 mmol/L (136-145)
== END 2022-09-22 11:10 | disposition home or self-care (01) ==
LOC: LAB 11:15
PROVIDERS: PCP Family Medicine; Visit Provider Internal Medicine Nephrology
DX: N18.4 Chronic kidney disease, stage 4 (severe) (principal)
CPT/HCPCS: 36415; 80069; 85025

== ENCOUNTER 2022-09-29 10:36 | Outpatient (CLI) | payer MEDICARE, BC, SELFPAY ==
[2022-09-29 11:42] LABS: Estmated Average Glucose 200; Hemoglobin A1C 8.6 % (4.0-6.0)
[2022-09-29 11:46] LABS: Alanine Aminotransferase 12 U/L (0-33); Albumin Level 3.5 g/dL (3.5-5.2); Alkaline Phosphatase 85 U/L (35-105); Anion Gap 13.6 (5-19); Aspartate Amino Transferase 13 U/L (0-32); Blood Urea Nitrogen 33 mg/dL (8-23); Calcium 8.7 mg/dL (8.5-10.5); Carbon Dioxide 28 mmol/L (22-29); Chloride 106 mmol/L (98-107); Chol HDL Ratio 3.67 mg/dL (0.0-4.40); Cholesterol 154 mg/dL (0-200); Globulin 3.3 g/dL (1.3-4.6); Glomerular Filtration Rate 27.8 mL/min (90-130); Glucose 272 mg/dL (65-115); HDL Cholesterol 42 mg/dL (60-100); LDL Cholesterol Calculated 67 mg/dL (50-129); Osmolality Calculated 313 mOsm/kg (285-295); Potassium 4.6 mmol/L (3.5-5.1); Sodium 143 mmol/L (136-145); Total Bilirubin 0.3 mg/dL (0.15-1.2); Total Protein 6.8 g/dL (6.6-8.7); Triglycerides 227 mg/dL (0-150)
[2022-09-29 11:52] LABS: Creatinine Urine, Random 25 mg/dL (28-217); Microalbumin Random Urine 2 ug/dL (0-20)
[2022-09-29 11:56] LABS: Microalbum Creatinine Ratio Ur 80 mg/dL (0-20)
== END 2022-09-29 10:37 | disposition home or self-care (01) ==
LOC: LAB 10:44
PROVIDERS: PCP Family Medicine; Visit Provider Internal Medicine
DX: Z01.89 Encounter for other specified special examinations (principal)
CPT/HCPCS: 36415; 80053; 80061; 82044; 83036

== ENCOUNTER → 2022-10-05 09:58 | Outpatient (BNVA) | payer MEDICARE, BC, SELFPAY | PROVIDERS: PCP Family Medicine; Visit Provider Internal Medicine | DX: E11.22 Type 2 diabetes mellitus with diabetic chronic kidney disease (principal); E11.65 Type 2 diabetes mellitus with hyperglycemia; N18.6 End stage renal disease; E78.2 Mixed hyperlipidemia; Z79.4 Long term (current) use of insulin | CPT/HCPCS: 99214 ==

== ENCOUNTER → 2022-10-24 11:34 | Outpatient (BNVA) | payer MEDICARE, BC, SELFPAY | PROVIDERS: PCP Family Medicine; Visit Provider Family Medicine | DX: R09.02 Hypoxemia (principal); N18.9 Chronic kidney disease, unspecified; R60.9 Edema, unspecified; I10 Essential (primary) hypertension; E78.2 Mixed hyperlipidemia; E11.65 Type 2 diabetes mellitus with hyperglycemia | CPT/HCPCS: 80048; 83880 ==

== ENCOUNTER 2022-11-08 13:51 | Outpatient (CLI) | payer MEDICARE, BC, SELFPAY ==
[2022-11-08 14:10] VITALS: PULSE 69; RESP 18; O2SAT 92
[2022-11-08] MEDS: albuterol 2.5 mg/3 mL Neb INHALATION (14:10)
[2022-11-08 14:15] VITALS: PULSE 72
== END 2022-11-08 13:52 | disposition home or self-care (01) ==
PROVIDERS: PCP Family Medicine; Visit Provider Family Medicine
DX: R09.02 Hypoxemia (principal); R06.00 Dyspnea, unspecified
CPT/HCPCS: 94060; 94726; 94729; J7613

== ENCOUNTER → 2022-11-09 11:07 | Outpatient (BNVA) | payer MEDICARE, BC, SELFPAY | PROVIDERS: PCP Family Medicine; Visit Provider Family Medicine | DX: R60.9 Edema, unspecified (principal); Z87.448 Personal history of other diseases of urinary system; R06.00 Dyspnea, unspecified | CPT/HCPCS: 80048; 83880 ==

== ENCOUNTER → 2022-12-12 12:29 | Outpatient (BNVA) | payer MEDICARE, BC, SELFPAY | PROVIDERS: PCP Family Medicine; Visit Provider Internal Medicine Pulmonary Disease | DX: R06.00 Dyspnea, unspecified (principal); R09.02 Hypoxemia; R60.9 Edema, unspecified; R06.02 Shortness of breath; I10 Essential (primary) hypertension | CPT/HCPCS: 36415; 80048; 82785; 83880; 86003; 99204 ==

== ENCOUNTER 2023-01-03 12:27 | Outpatient (CLI) | payer MEDICARE, BC, SELFPAY ==
--- NOTE | 2023-01-03 13:00 | USCV_ITS ---
Gavi Lama Age: 72 Gender: F : 1950 Exam Date: 01/03/2023 13:10 Ordering Phys: Edin Fine MD Technologist: Christiana Lane Exam Location: [facility] Indication: sob, kidney disease BP: 130 / 74 HR: 74 Rhythm: Sinus Technical Quality: Adequate MEASUREMENTS (Male / Female) Normal Values 2D ECHO LV Diastolic Diameter PLAX 3.9 cm 4.2 - 5.9 / 3.9 - 5.3 cm LV Systolic Diameter PLAX 2.1 cm IVS Diastolic Thickness 1.9 cm 0.6 - 1.0 / 0.6 - 0.9 cm IVS Systolic Thickness 1.9 cm LVPW Diastolic Thickness 1.5 cm 0.6 - 1.0 / 0.6 - 0.9 cm LVPW Systolic Thickness 2.2 cm LVOT Diameter 2.0 cm LV Ejection Fraction 2D Teich 77.4 % LV Ejection Fraction MOD 2C 75.7 % LV Ejection Fraction 2C AL 76.6 % LA Diameter 2.7 cm LA Width 3.9 cm LA Height 5.3 cm RA Width 2.7 cm RA Height 5.1 cm Aorta at Sinotubular Diameter 3.3 cm IVC Diameter 1.7 cm M-MODE Aortic Annulus Diameter 2.9 cm LA Ao Ratio MM 1.0 MV E Point Septal Separation 0.4 cm DOPPLER AV Peak Velocity 217.0 cm/s LVOT Peak Velocity 145.0 cm/s AV Area Cont Eq vti 2.8 cm squared AV Area Cont Eq pk 2.2 cm squared MV Peak Velocity 169.0 cm/s MV Area PHT 2.6 cm squared Mitral E to A Ratio 0.9 MV E' Velocity 63.5 cm/s Mitral E to MV E' Ratio 13.0 Mitral E to LV E' Lateral Ratio 11.2 Mitral E to LV E' Septal Ratio 15.3 TR Peak Velocity 167.0 cm/s TR Peak Gradient 11.2 mmHg Right Atrial Pressure 5.0 mmHg Pulmonary Artery Systolic Pressu 16.2 mmHg PV Peak Velocity 95.0 cm/s RV Acceleration Time 0.1 s RV Ejection Time 0.3 s RV AcT/ET 0.3 FINDINGS Left Ventricle Normal left ventricular size and systolic function, EF 75 %. Moderate left ventricular hypertrophy. No regional wall motion abnormalities. Grade I/IV diastolic dysfunction (abnormal relaxation filling pattern), normal to mildly elevated filling pressures. Right Ventricle Possibly normal RV size ejection fraction. Right Atrium Possibly of normal Left Atrium Upper limit of normal size Mitral Valve No gross abnormalities noted Aortic Valve Thickened aortic valve. Aortic valve sclerosis. Tricuspid Valve Tricuspid valve not well visualized. Pulmonic Valve Pulmonic valve not well visualized. Pericardium Normal pericardium without effusion. Aorta Normal aortic annulus size. IVC Normal inferior vena cava. CONCLUSIONS Normal left ventricular size and systolic function, EF 75 %. Moderate left ventricular hypertrophy. No regional wall motion abnormalities. Grade I/IV diastolic dysfunction (abnormal relaxation filling pattern), normal to mildly elevated filling pressures. Aortic valve sclerosis. There is no pericardial effusion. PA pressure possibly within normal limits-because of technical difficulty the Doppler signals are of suboptimal quality. Technically difficult study because of the poor ultrasonic window. No similar previous studies are available for comparison Dr Isaac Wilcox MD [facility] (Electronically Signed) Final Date: 04 January 2023 22:04 S
== END 2023-01-03 12:28 | disposition home or self-care (01) ==
PROVIDERS: PCP Family Medicine; Visit Provider Internal Medicine Pulmonary Disease
DX: I35.8 Other nonrheumatic aortic valve disorders (principal); R06.02 Shortness of breath
CPT/HCPCS: 93306

== ENCOUNTER 2023-01-06 13:40 | Outpatient (CLI) | payer MEDICARE, BC, SELFPAY ==
[2023-01-06 14:36] LABS: Alanine Aminotransferase 10 U/L (0-33); Albumin Level 3.4 g/dL (3.5-5.2); Alkaline Phosphatase 95 U/L (35-105); Anion Gap 10.9 (5-19); Aspartate Amino Transferase 11 U/L (0-32); Blood Urea Nitrogen 26 mg/dL (8-23); Calcium 8.8 mg/dL (8.5-10.5); Carbon Dioxide 31 mmol/L (22-29); Chloride 106 mmol/L (98-107); Chol HDL Ratio 3.87 mg/dL (0.0-4.40); Cholesterol 151 mg/dL (0-200); Globulin 2.4 g/dL (1.3-4.6); Glomerular Filtration Rate 27.8 mL/min (90-130); Glucose 177 mg/dL (65-115); HDL Cholesterol 39 mg/dL (60-100); LDL Cholesterol Calculated 66 mg/dL (50-129); LDL HDL Ratio 1.69 RATIO (0.00-3.22); Osmolality Calculated 305 mOsm/kg (285-295); Potassium 4.9 mmol/L (3.5-5.1); Sodium 143 mmol/L (136-145); Total Bilirubin 0.4 mg/dL (0.15-1.2); Total Protein 5.8 g/dL (6.6-8.7); Triglycerides 232 mg/dL (0-150)
[2023-01-06 14:37] LABS: Creatinine Urine, Random 126 mg/dL (28-217); Microalbumin Random Urine 8 ug/dL (0-20)
[2023-01-06 14:41] LABS: Microalbum Creatinine Ratio Ur 63 mg/dL (0-20)
[2023-01-06 15:12] LABS: Estmated Average Glucose 200; Hemoglobin A1C 8.6 % (4.0-6.0)
== END 2023-01-06 13:41 | disposition home or self-care (01) ==
LOC: LAB 13:44
PROVIDERS: PCP Family Medicine; Visit Provider Internal Medicine
DX: E11.65 Type 2 diabetes mellitus with hyperglycemia (principal); N18.6 End stage renal disease; E78.2 Mixed hyperlipidemia
CPT/HCPCS: 36415; 80053; 80061; 82044; 83036

== ENCOUNTER → 2023-01-11 10:19 | Outpatient (BNVA) | payer MEDICARE, BC, SELFPAY | PROVIDERS: PCP Family Medicine; Visit Provider Internal Medicine | DX: E11.65 Type 2 diabetes mellitus with hyperglycemia (principal); E78.2 Mixed hyperlipidemia; N18.6 End stage renal disease; I12.0 Hypertensive chronic kidney disease with stage 5 chronic kidney disease or end stage renal disease; E11.22 Type 2 diabetes mellitus with diabetic chronic kidney disease; Z79.4 Long term (current) use of insulin; R09.02 Hypoxemia; I26.99 Other pulmonary embolism without acute cor pulmonale; J82.83 Eosinophilic asthma; Z86.718 Personal history of other venous thrombosis and embolism; Z79.01 Long term (current) use of anticoagulants | CPT/HCPCS: 99214 ==

== ENCOUNTER 2023-01-23 13:37 | Outpatient (CLI) | payer MEDICARE, BC, SELFPAY ==
--- NOTE | 2023-01-23 14:15 | USCV_ITS ---
Gavi Lama Age: 73 Gender: F : 1950 Exam Date: 01/23/2023 14:05 Ordering Phys: Edin Fine MD Technologist: Osmany Christine [place] [facility] [place] Indication: pulmonary embolism BP: 148 / 78 HR: 67 Rhythm: Sinus Technical Quality: Adequate MEASUREMENTS (Male / Female) Normal Values 2D ECHO LVOT Diameter 2.0 cm LV Ejection Fraction MOD 2C 63.9 % LV Ejection Fraction 2C AL 65.4 % LA Diameter 3.8 cm LA Width 3.7 cm LA Height 5.4 cm RA Width 3.3 cm RA Height 4.2 cm Aorta at Sinotubular Diameter 1.8 cm IVC Diameter 2.0 cm M-MODE Aortic Annulus Diameter 2.6 cm LA Ao Ratio MM 1.4 MV E Point Septal Separation 0.6 cm DOPPLER AV Peak Velocity 220.3 cm/s LVOT Peak Velocity 135.0 cm/s AV Area Cont Eq vti 2.0 cm squared AV Area Cont Eq pk 1.9 cm squared MV Peak Velocity 160.0 cm/s MV Area PHT 4.6 cm squared Mitral E to A Ratio 0.6 MV E' Velocity 37.0 cm/s Mitral E to MV E' Ratio 6.4 Mitral E to LV E' Lateral Ratio 5.3 Mitral E to LV E' Septal Ratio 8.0 TR Peak Velocity 217.9 cm/s TR Peak Gradient 19.0 mmHg TR Mean Velocity 169.9 cm/s TR Mean Gradient 12.2 mmHg TR Velocity Time Integral 47.4 cm Right Atrial Pressure 3.0 mmHg Pulmonary Artery Systolic Pressu 22.0 mmHg PV Peak Velocity 110.0 cm/s RV Acceleration Time 0.1 s RV Ejection Time 0.3 s RV AcT/ET 0.2 FINDINGS Left Ventricle Left ventricle is normal in size. LV systolic function is normal with EF of 60 to 65%. No regional wall motion abnormalities are seen. Grade 1 diastolic dysfunction Right Ventricle Normal in size and function Right Atrium Normal in size. No [id number] shunt seen on bubble study. Left Atrium Normal in size Mitral Valve Structurally normal mitral valve. Mild mitral regurgitation. Aortic Valve Grossly normal. Mild aortic stenosis. Aortic valve area is 1.98 cm squared with mean gradient across aortic valve of 10 mmHg. Tricuspid Valve Mild tricuspid regurgitation. Insufficient TR jet to calculate RVSP. Pulmonic Valve Not well visualized. Pericardium Normal Aorta Normal in size IVC Appears to be normal CONCLUSIONS LV systolic function is normal with EF of 60 to 65%. Grade 1 diastolic dysfunction. No [id number] shunt seen on bubble study. Mild mitral regurgitation Mild aortic stenosis Mild tricuspid regurgitation Compared to prior echocardiogram from 01/08, mild aortic stenosis is noted. . Manuel Moran MD (Electronically Signed) Final Date: 31 January 2023 22:08 S
== END 2023-01-23 13:38 | disposition home or self-care (01) ==
PROVIDERS: PCP Family Medicine; Visit Provider Internal Medicine Pulmonary Disease
DX: I26.99 Other pulmonary embolism without acute cor pulmonale (principal); I34.0 Nonrheumatic mitral (valve) insufficiency; I35.0 Nonrheumatic aortic (valve) stenosis; I07.1 Rheumatic tricuspid insufficiency
CPT/HCPCS: C8929

== ENCOUNTER 2023-02-07 11:56 | Outpatient (CLI) | payer MEDICARE, BC, SELFPAY ==
[2023-02-07 12:32] LABS: Basophils % 0.3 %; Eosinophils # 0.1 10^3/uL (0.0-0.8); Hematocrit 44.4 % (36-47); Lymphocytes # 1.7 10^3/uL (0.8-4.8); Lymphocytes % 17.3 %; Mean Corpuscular HGB Conc 29.5 g/dL (30-55); Mean Corpuscular Hemoglobin 29.9 pg (27-33); Mean Corpuscular Volume 101.4 fl (85-98); Mean Platelet Volume 10.6 fL (7.4-10.4); Monocytes # 0.7 10^3/uL (0.2-0.9); Monocytes % 7.4 %; Neutrophils # 7.27 10^3/uL (1.8-7.7); Neutrophils % 73.7 %; Nucleated Red Blood Cells % 0 %; Platelet Count 235 10^3/cmm (157-399); Red Blood Count 4.38 10^6/uL (3.85-5.65); Red Cell Distribution Width 16.7 % (12.1-15.1); White Blood Count 9.87 10^3/uL (3.29-11.43)
[2023-02-07 12:55] LABS: Creatinine Urine, Random 144 mg/dL (28-217); Microalbumin Random Urine 17 ug/dL (0-20)
[2023-02-07 12:58] LABS: Calcium 8.5 mg/dL (8.5-10.5)
[2023-02-07 13:01] LABS: Microalbum Creatinine Ratio Ur 118 mg/dL (0-20)
[2023-02-07 13:02] LABS: Parathyroid Hormone 171.8 pg/mL (15-65)
[2023-02-07 13:19] LABS: 25 Hydroxy Vitamin D 43 ng/mL (30-100); Albumin Level 3.4 g/dL (3.5-5.2); Blood Urea Nitrogen 19 mg/dL (8-23); Calcium 8.6 mg/dL (8.5-10.5); Carbon Dioxide 32 mmol/L (22-29); Chloride 111 mmol/L (98-107); Glucose 145 mg/dL (65-115); Sodium 147 mmol/L (136-145)
== END 2023-02-07 11:57 | disposition home or self-care (01) ==
PROVIDERS: PCP Family Medicine; Visit Provider Internal Medicine Nephrology
DX: N18.4 Chronic kidney disease, stage 4 (severe) (principal); Z79.899 Other long term (current) drug therapy
CPT/HCPCS: 36415; 80069; 82044; 82306; 82310; 83970; 85025

== ENCOUNTER → 2023-03-29 13:48 | Outpatient (BNVA) | payer MEDICARE, BC, SELFPAY | PROVIDERS: PCP Family Medicine; Visit Provider Internal Medicine Pulmonary Disease | DX: R09.02 Hypoxemia (principal); R53.83 Other fatigue; J82.83 Eosinophilic asthma; I26.99 Other pulmonary embolism without acute cor pulmonale; R22.43 Localized swelling, mass and lump, lower limb, bilateral; E66.2 Morbid (severe) obesity with alveolar hypoventilation; Z68.42 Body mass index [BMI] 45.0-49.9, adult | CPT/HCPCS: 99214 ==

== ENCOUNTER 2023-04-07 13:47 | Outpatient (CLI) | payer MEDICARE, BC, SELFPAY ==
[2023-04-07 14:24] LABS: Estmated Average Glucose 180; Hemoglobin A1C 7.9 % (4.0-6.0)
[2023-04-07 14:34] LABS: Alanine Aminotransferase 15 U/L (0-33); Albumin Level 3.7 g/dL (3.5-5.2); Alkaline Phosphatase 112 U/L (35-105); Anion Gap 15.1 (5-19); Aspartate Amino Transferase 21 U/L (0-32); Blood Urea Nitrogen 53 mg/dL (8-23); Calcium 9.1 mg/dL (8.5-10.5); Carbon Dioxide 31 mmol/L (22-29); Chloride 99 mmol/L (98-107); Chol HDL Ratio 3.86 mg/dL (0.0-4.40); Cholesterol 166 mg/dL (0-200); Globulin 3.4 g/dL (1.3-4.6); HDL Cholesterol 43 mg/dL (60-100); LDL Cholesterol Calculated 66 mg/dL (50-129); LDL HDL Ratio 1.53 RATIO (0.00-3.22); Osmolality Calculated 328 mOsm/kg (285-295); Potassium 5.1 mmol/L (3.5-5.1); Sodium 140 mmol/L (136-145); Total Bilirubin 0.4 mg/dL (0.15-1.2); Total Protein 7.1 g/dL (6.6-8.7); Triglycerides 286 mg/dL (0-150)
[2023-04-07 14:46] LABS: Creatinine Urine, Random 53 mg/dL (28-217); Microalbumin Random Urine 4 ug/dL (0-20)
[2023-04-07 14:48] LABS: Microalbum Creatinine Ratio Ur 75 mg/dL (0-20)
[2023-04-07 15:05] LABS: Glucose 519 mg/dL (65-115)
== END 2023-04-07 13:48 | disposition home or self-care (01) ==
PROVIDERS: PCP Family Medicine; Visit Provider Internal Medicine
DX: E11.65 Type 2 diabetes mellitus with hyperglycemia (principal); E78.2 Mixed hyperlipidemia; E11.22 Type 2 diabetes mellitus with diabetic chronic kidney disease; N18.6 End stage renal disease
CPT/HCPCS: 36415; 80053; 80061; 82044; 83036

== ENCOUNTER → 2023-04-14 10:53 | Outpatient (BNVA) | payer MEDICARE, BC, SELFPAY | PROVIDERS: PCP Family Medicine; Visit Provider Internal Medicine | DX: E11.65 Type 2 diabetes mellitus with hyperglycemia (principal); E78.2 Mixed hyperlipidemia; N18.6 End stage renal disease; E11.22 Type 2 diabetes mellitus with diabetic chronic kidney disease; Z79.4 Long term (current) use of insulin | CPT/HCPCS: 99214 ==

== ENCOUNTER 2023-05-10 13:47 | Outpatient (CLI) | payer MEDICARE, BC, SELFPAY ==
--- NOTE | 2023-05-10 13:49 | MM_ITS ---
WS: [id number] BILATERAL 3D TOMOSYNTHESIS DIGITAL SCREENING MAMMOGRAPHY WITH CAD CLINICAL INFORMATION: SCREENING HISTORY: Screening mammogram. No current complaints. COMPARISON: 2021 TECHNIQUE: Bilateral CC and MLO views. FINDINGS: Scattered fibroglandular densities bilaterally. No suspicious focal mass, asymmetry, calcifications, or architectural distortion. No evidence of malignancy. IMPRESSION: MM/[place] [id number] BI-RADS: 1-Negative FOLLOW UP: 1 Year Follow-up Recommend return to annual screening mammography.
== END 2023-05-10 13:48 | disposition home or self-care (01) ==
LOC: RAD 13:47
PROVIDERS: PCP Family Medicine; Visit Provider Family Medicine
DX: Z12.31 Encounter for screening mammogram for malignant neoplasm of breast (principal)
CPT/HCPCS: 77063; 77067

== ENCOUNTER 2023-05-15 14:33 | Outpatient (CLI) | payer MEDICARE, BC, SELFPAY ==
[2023-05-15 15:22] LABS: Alveolar-Arterial Oxygen Gradi 2.4 mmHg (5-10); Arterial Blood Gas Hematocrit 44.8 % (37-47); Blood Gas Allen Test Pos; Blood Gas Operator Identificat glc; Blood Gas Sample Site Radial, left; Blood Gas Sample Type Arterial; Carboxyhemoglobin 1.3 %THgb (0.4-20.1); HGB O2 Sat 90.1 % (95-100); Methemoglobin 0.3 % (0.4-1.5); Oxygen Device ROOM AIR; Total Hemoglobin 14.6 g/dL (12-16)
== END 2023-05-15 14:34 | disposition home or self-care (01) ==
LOC: LAB 14:35
PROVIDERS: PCP Family Medicine; Visit Provider Internal Medicine Pulmonary Disease
DX: R09.02 Hypoxemia (principal)
CPT/HCPCS: 36600; 82810

== ENCOUNTER → 2023-05-16 13:58 | Outpatient (BNVA) | payer MEDICARE, BC, SELFPAY | PROVIDERS: PCP Family Medicine; Visit Provider Podiatrist Foot & Ankle Surgery | DX: B35.1 Tinea unguium (principal); E11.65 Type 2 diabetes mellitus with hyperglycemia; I73.9 Peripheral vascular disease, unspecified; G62.9 Polyneuropathy, unspecified; L84 Corns and callosities; E11.42 Type 2 diabetes mellitus with diabetic polyneuropathy; Z79.4 Long term (current) use of insulin | CPT/HCPCS: 11056; 11721; 99203 ==

== ENCOUNTER 2023-06-13 20:00 | Outpatient (CLI) | payer MEDICARE, BC, SELFPAY | END 2023-06-13 20:01 | disposition home or self-care (01) | LOC: SLEEP 06-14 05:54 | PROVIDERS: PCP Family Medicine; Visit Provider Internal Medicine Pulmonary Disease | DX: G47.33 Obstructive sleep apnea (adult) (pediatric) (principal); G47.36 Sleep related hypoventilation in conditions classified elsewhere; R06.83 Snoring; I10 Essential (primary) hypertension; E11.9 Type 2 diabetes mellitus without complications | CPT/HCPCS: 95810 ==

== ENCOUNTER → 2023-07-06 10:41 | Outpatient (BNVA) | payer MEDICARE, BC, SELFPAY | PROVIDERS: PCP Family Medicine; Visit Provider Internal Medicine Pulmonary Disease | DX: R09.02 Hypoxemia (principal); J82.83 Eosinophilic asthma; I26.99 Other pulmonary embolism without acute cor pulmonale; E66.2 Morbid (severe) obesity with alveolar hypoventilation; Z68.41 Body mass index [BMI] 40.0-44.9, adult; Z79.01 Long term (current) use of anticoagulants | CPT/HCPCS: 99214 ==

== ENCOUNTER 2023-07-14 14:07 | Outpatient (CLI) | payer MEDICARE, BC, SELFPAY ==
[2023-07-14 15:08] LABS: Estmated Average Glucose 212
[2023-07-14 15:20] LABS: Alanine Aminotransferase 12 U/L (0-33); Albumin Level 3.4 g/dL (3.5-5.2); Alkaline Phosphatase 102 U/L (35-105); Aspartate Amino Transferase 16 U/L (0-32); Blood Urea Nitrogen 38 mg/dL (8-23); Calcium 8.9 mg/dL (8.5-10.5); Carbon Dioxide 32 mmol/L (22-29); Chloride 94 mmol/L (98-107); Chol HDL Ratio 3.95 mg/dL (0.0-4.40); Cholesterol 158 mg/dL (0-200); Globulin 3.6 g/dL (1.3-4.6); Glucose 446 mg/dL (65-115); HDL Cholesterol 40 mg/dL (60-100); LDL Cholesterol Calculated 63 mg/dL (50-129); LDL HDL Ratio 1.58 RATIO (0.00-3.22); Osmolality Calculated 310 mOsm/kg (285-295); Sodium 136 mmol/L (136-145); Total Bilirubin 0.5 mg/dL (0.15-1.2); Triglycerides 275 mg/dL (0-150)
[2023-07-14 15:24] LABS: Anion Gap 14.7 (5-19); Potassium 4.7 mmol/L (3.5-5.1)
[2023-07-14 15:30] LABS: Creatinine Urine, Random 171 mg/dL (28-217); Microalbum Creatinine Ratio Ur 35 mg/dL (0-20); Microalbumin Random Urine 6 ug/dL (0-20)
== END 2023-07-14 14:08 | disposition home or self-care (01) ==
PROVIDERS: PCP Family Medicine; Visit Provider Internal Medicine
DX: E11.65 Type 2 diabetes mellitus with hyperglycemia (principal)
CPT/HCPCS: 36415; 80053; 80061; 82044; 83036

== ENCOUNTER → 2023-07-19 11:33 | Outpatient (BNVA) | payer MEDICARE, BC, SELFPAY | PROVIDERS: PCP Family Medicine; Visit Provider Internal Medicine | DX: E11.65 Type 2 diabetes mellitus with hyperglycemia (principal); E78.2 Mixed hyperlipidemia; N18.6 End stage renal disease; E11.22 Type 2 diabetes mellitus with diabetic chronic kidney disease; Z79.4 Long term (current) use of insulin | CPT/HCPCS: 99214 ==

== ENCOUNTER → 2023-08-07 10:47 | Outpatient (BNVA) | payer MEDICARE, BC, SELFPAY | PROVIDERS: PCP Family Medicine; Visit Provider Podiatrist Foot & Ankle Surgery | DX: B35.1 Tinea unguium (principal); E11.65 Type 2 diabetes mellitus with hyperglycemia; I73.9 Peripheral vascular disease, unspecified; G62.9 Polyneuropathy, unspecified; L84 Corns and callosities; Z79.4 Long term (current) use of insulin | CPT/HCPCS: 11056; 11721 ==

== ENCOUNTER 2023-08-10 09:43 | Outpatient (CLI) | payer MEDICARE, BC, SELFPAY ==
[2023-08-10 10:29] LABS: Basophils # 0.1 10^3/uL (0.0-0.1); Basophils % 0.6 %; Eosinophils # 0.3 10^3/uL (0.0-0.8); Eosinophils % 2.6 %; Hematocrit 50.5 % (36-47); Lymphocytes # 2.3 10^3/uL (0.8-4.8); Lymphocytes % 22.5 %; Mean Corpuscular HGB Conc 29.1 g/dL (30-55); Mean Corpuscular Hemoglobin 31.8 pg (27-33); Mean Corpuscular Volume 109.3 fl (85-98); Mean Platelet Volume 10.7 fL (7.4-10.4); Monocytes # 0.7 10^3/uL (0.2-0.9); Monocytes % 6.6 %; Neutrophils # 6.87 10^3/uL (1.8-7.7); Neutrophils % 67.1 %; Nucleated Red Blood Cells % 0.3 %; Platelet Count 229 10^3/cmm (157-399); Red Blood Count 4.62 10^6/uL (3.85-5.65); Red Cell Distribution Width 16.7 % (12.1-15.1); White Blood Count 10.24 10^3/uL (3.29-11.43)
[2023-08-10 10:52] LABS: Albumin Level 3.4 g/dL (3.5-5.2); Anion Gap 16.5 (5-19); Blood Urea Nitrogen 34 mg/dL (8-23); Calcium 8.4 mg/dL (8.5-10.5); Carbon Dioxide 29 mmol/L (22-29); Chloride 101 mmol/L (98-107); Glucose 367 mg/dL (65-115); Phosphorus 2.9 mg/dL (2.5-4.5); Potassium 4.5 mmol/L (3.5-5.1); Sodium 142 mmol/L (136-145)
[2023-08-10 10:57] LABS: Calcium 8.5 mg/dL (8.5-10.5)
[2023-08-10 11:04] LABS: Parathyroid Hormone 355.5 pg/mL (15-65)
[2023-08-10 11:07] LABS: 25 Hydroxy Vitamin D 35 ng/mL (30-100)
[2023-08-10 11:09] LABS: Creatinine Urine, Random 244 mg/dL (28-217)
[2023-08-10 11:21] LABS: Microalbum Creatinine Ratio Ur 287 mg/dL (0-20); Microalbumin Random Urine 70 ug/dL (0-20)
== END 2023-08-10 09:44 | disposition home or self-care (01) ==
LOC: LAB 09:44
PROVIDERS: PCP Family Medicine; Visit Provider Internal Medicine Nephrology
DX: N18.4 Chronic kidney disease, stage 4 (severe) (principal)
CPT/HCPCS: 36415; 80069; 82044; 82306; 82310; 83970; 85025

== ENCOUNTER 2023-08-29 13:42 | Outpatient (CLI) | payer MEDICARE, BC, SELFPAY ==
--- NOTE | 2023-08-29 13:45 | XRR_ITS ---
PROCEDURE INFORMATION: Exam: XR Chest Exam date and time: 08/29/2023 1:58 PM Age: 73 years old Clinical indication: Cough and shortness of breath; Additional info: Cough with SOB TECHNIQUE: Imaging protocol: Radiologic exam of the chest. Views: 2 views. COMPARISON: CR XR chest 2V* [id number] 09/05/2022 12:36 PM FINDINGS: Lungs: New atelectasis and/or pneumonitis in the right lower lung. Otherwise, unremarkable. Pleural spaces: Unremarkable. No pleural effusion. No pneumothorax. Heart/Mediastinum: Unremarkable. No cardiomegaly. Bones/joints: Unchanged mild scoliosis with mild and moderate multilevel spondylosis. XR/XR chest 2V* [id number] IMPRESSION: New right lower lung atelectasis and/or pneumonitis.
== END 2023-08-29 13:43 | disposition home or self-care (01) ==
LOC: RAD 13:42
PROVIDERS: PCP Family Medicine; Visit Provider Clinical Nurse Specialist Adult Health
DX: R05.9 Cough, unspecified (principal); J98.11 Atelectasis
CPT/HCPCS: 71046

== ENCOUNTER 2023-09-25 20:00 | Outpatient (CLI) | payer MEDICARE, BC, SELFPAY | END 2023-09-25 20:01 | disposition home or self-care (01) | LOC: SLEEP 09-26 05:49 | PROVIDERS: PCP Family Medicine; Visit Provider Internal Medicine Pulmonary Disease | DX: G47.30 Sleep apnea, unspecified (principal) | CPT/HCPCS: 95811 ==

== ENCOUNTER → 2023-10-05 13:47 | Outpatient (BNVA) | payer MEDICARE, BC, SELFPAY | PROVIDERS: PCP Family Medicine; Visit Provider Internal Medicine Pulmonary Disease | DX: R09.02 Hypoxemia (principal); J82.83 Eosinophilic asthma; I26.99 Other pulmonary embolism without acute cor pulmonale; R22.43 Localized swelling, mass and lump, lower limb, bilateral; E66.2 Morbid (severe) obesity with alveolar hypoventilation | CPT/HCPCS: 99214 ==

== ENCOUNTER → 2023-10-11 14:41 | Outpatient (BNVA) | payer MEDICARE, BC, SELFPAY | PROVIDERS: PCP Family Medicine; Visit Provider Podiatrist Foot & Ankle Surgery | DX: B35.1 Tinea unguium (principal); E11.65 Type 2 diabetes mellitus with hyperglycemia; I73.9 Peripheral vascular disease, unspecified; G62.9 Polyneuropathy, unspecified; L84 Corns and callosities; Z79.4 Long term (current) use of insulin | CPT/HCPCS: 11056; 11721 ==

== ENCOUNTER 2023-10-16 13:58 | Outpatient (CLI) | payer MEDICARE, BC, SELFPAY ==
[2023-10-16 14:35] LABS: Alanine Aminotransferase 13 U/L (0-33); Albumin Level 3.3 g/dL (3.5-5.2); Alkaline Phosphatase 84 U/L (35-105); Anion Gap 11.5 (5-19); Aspartate Amino Transferase 12 U/L (0-32); Blood Urea Nitrogen 21 mg/dL (8-23); Calcium 8.5 mg/dL (8.5-10.5); Carbon Dioxide 28 mmol/L (22-29); Chloride 112 mmol/L (98-107); Cholesterol 131 mg/dL (0-200); Globulin 2.9 g/dL (1.3-4.6); Glucose 141 mg/dL (65-115); HDL Cholesterol 41 mg/dL (60-100); LDL Cholesterol Calculated 47 mg/dL (50-129); LDL HDL Ratio 1.15 RATIO (0.00-3.22); Osmolality Calculated 309 mOsm/kg (285-295); Potassium 4.5 mmol/L (3.5-5.1); Sodium 147 mmol/L (136-145); Total Bilirubin 0.3 mg/dL (0.15-1.2); Total Protein 6.2 g/dL (6.6-8.7); Triglycerides 217 mg/dL (0-150)
[2023-10-16 14:36] LABS: Estmated Average Glucose 212
[2023-10-16 14:37] LABS: Creatinine Urine, Random 188 mg/dL (28-217); Microalbumin Random Urine 9 ug/dL (0-20)
[2023-10-16 14:40] LABS: Microalbum Creatinine Ratio Ur 48 mg/dL (0-20)
== END 2023-10-16 13:59 | disposition home or self-care (01) ==
LOC: LAB 14:01
PROVIDERS: PCP Family Medicine; Visit Provider Internal Medicine
DX: E11.65 Type 2 diabetes mellitus with hyperglycemia (principal); E78.2 Mixed hyperlipidemia
CPT/HCPCS: 36415; 80053; 80061; 82044; 83036

== ENCOUNTER → 2023-10-19 11:18 | Outpatient (BNVA) | payer MEDICARE, BC, SELFPAY | PROVIDERS: PCP Family Medicine; Visit Provider Internal Medicine | DX: E11.65 Type 2 diabetes mellitus with hyperglycemia (principal); E78.2 Mixed hyperlipidemia; N18.6 End stage renal disease; E11.22 Type 2 diabetes mellitus with diabetic chronic kidney disease; Z79.4 Long term (current) use of insulin | CPT/HCPCS: 99214 ==

== ENCOUNTER 2023-11-20 14:48 | Outpatient (CLI) | payer MEDICARE, BC, SELFPAY ==
[2023-11-20 15:15] LABS: Basophils % 0.4 %; Eosinophils # 0.3 10^3/uL (0.0-0.8); Hematocrit 41.5 % (36-47); Lymphocytes # 2.5 10^3/uL (0.8-4.8); Lymphocytes % 23.6 %; Mean Corpuscular HGB Conc 31.1 g/dL (30-55); Mean Corpuscular Hemoglobin 31.3 pg (27-33); Mean Corpuscular Volume 100.7 fl (85-98); Mean Platelet Volume 10.7 fL (7.4-10.4); Monocytes # 0.8 10^3/uL (0.2-0.9); Monocytes % 7.1 %; Neutrophils % 65.6 %; Nucleated Red Blood Cells % 0 %; Platelet Count 251 10^3/cmm (157-399); Red Blood Count 4.12 10^6/uL (3.85-5.65); Red Cell Distribution Width 16.3 % (12.1-15.1); White Blood Count 10.67 10^3/uL (3.29-11.43)
[2023-11-20 15:44] LABS: Albumin Level 3.8 g/dL (3.5-5.2); Anion Gap 12.3 (5-19); Blood Urea Nitrogen 32 mg/dL (8-23); Calcium 8.7 mg/dL (8.5-10.5); Carbon Dioxide 32 mmol/L (22-29); Chloride 102 mmol/L (98-107); Glucose 241 mg/dL (65-115); Phosphorus 2.9 mg/dL (2.5-4.5); Potassium 4.3 mmol/L (3.5-5.1); Sodium 142 mmol/L (136-145)
[2023-11-20 15:45] LABS: Calcium 8.6 mg/dL (8.5-10.5)
[2023-11-20 15:48] LABS: Creatinine Urine, Random 70 mg/dL (28-217); Microalbum Creatinine Ratio Ur 29 mg/dL (0-20); Microalbumin Random Urine 2 ug/dL (0-20)
[2023-11-20 15:49] LABS: Parathyroid Hormone 184.3 pg/mL (15-65)
== END 2023-11-20 14:49 | disposition home or self-care (01) ==
LOC: LAB 14:51
PROVIDERS: PCP Family Medicine; Visit Provider Registered Nurse
DX: N18.4 Chronic kidney disease, stage 4 (severe) (principal)
CPT/HCPCS: 36415; 80069; 82044; 82310; 83970; 85025

== ENCOUNTER → 2023-12-12 13:46 | Outpatient (BNVA) | payer MEDICARE, BC, SELFPAY | PROVIDERS: PCP Family Medicine; Visit Provider Podiatrist Foot & Ankle Surgery | DX: B35.1 Tinea unguium (principal); E11.65 Type 2 diabetes mellitus with hyperglycemia; I73.9 Peripheral vascular disease, unspecified; G62.9 Polyneuropathy, unspecified; L84 Corns and callosities; Z79.4 Long term (current) use of insulin | CPT/HCPCS: 11721 ==

== ENCOUNTER 2024-01-18 14:19 | Outpatient (CLI) | payer MEDICARE, BC, SELFPAY ==
[2024-01-18 15:29] LABS: Alanine Aminotransferase 14 U/L (0-33); Albumin Level 3.6 g/dL (3.5-5.2); Alkaline Phosphatase 98 U/L (35-105); Blood Urea Nitrogen 41 mg/dL (8-23); Calcium 8.7 mg/dL (8.5-10.5); Carbon Dioxide 28 mmol/L (22-29); Chloride 100 mmol/L (98-107); Chol HDL Ratio 4.29 mg/dL (0.0-4.40); Cholesterol 163 mg/dL (0-200); Globulin 3.5 g/dL (1.3-4.6); Glucose 368 mg/dL (65-115); HDL Cholesterol 38 mg/dL (60-100); LDL Cholesterol Calculated 52 mg/dL (50-129); LDL HDL Ratio 1.37 RATIO (0.00-3.22); Osmolality Calculated 315 mOsm/kg (285-295); Sodium 140 mmol/L (136-145); Total Bilirubin 0.4 mg/dL (0.15-1.2); Total Protein 7.1 g/dL (6.6-8.7); Triglycerides 365 mg/dL (0-150)
[2024-01-18 15:33] LABS: Creatinine Urine, Random 47 mg/dL (28-217); Microalbum Creatinine Ratio Ur 21 mg/dL (0-20); Microalbumin Random Urine 1 ug/dL (0-20)
[2024-01-18 15:36] LABS: Anion Gap 16.4 (5-19); Aspartate Amino Transferase 16 U/L (0-32); Potassium 4.4 mmol/L (3.5-5.1)
[2024-01-18 16:03] LABS: Estmated Average Glucose 223; Hemoglobin A1C 9.4 % (4.0-6.0)
== END 2024-01-18 14:20 | disposition home or self-care (01) ==
LOC: LAB 14:21
PROVIDERS: PCP Family Medicine; Visit Provider Internal Medicine
DX: E11.65 Type 2 diabetes mellitus with hyperglycemia (principal); E78.2 Mixed hyperlipidemia
CPT/HCPCS: 80053; 80061; 82044; 83036

== ENCOUNTER → 2024-01-25 11:37 | Outpatient (BNVA) | payer MEDICARE, BC, SELFPAY | PROVIDERS: PCP Family Medicine; Visit Provider Internal Medicine | DX: E11.65 Type 2 diabetes mellitus with hyperglycemia (principal); E78.2 Mixed hyperlipidemia; N18.6 End stage renal disease; E11.22 Type 2 diabetes mellitus with diabetic chronic kidney disease; Z79.4 Long term (current) use of insulin | CPT/HCPCS: 99214 ==

== ENCOUNTER → 2024-01-30 12:24 | Outpatient (BNVA) | payer MEDICARE, BC, SELFPAY | PROVIDERS: PCP Family Medicine; Visit Provider Internal Medicine Critical Care Medicine | DX: J96.11 Chronic respiratory failure with hypoxia (principal); Z99.81 Dependence on supplemental oxygen; I50.32 Chronic diastolic (congestive) heart failure; J82.83 Eosinophilic asthma; I27.82 Chronic pulmonary embolism; I82.431 Acute embolism and thrombosis of right popliteal vein; G47.33 Obstructive sleep apnea (adult) (pediatric); J38.3 Other diseases of vocal cords; E66.01 Morbid (severe) obesity due to excess calories; Z68.41 Body mass index [BMI] 40.0-44.9, adult; Z71.82 Exercise counseling | CPT/HCPCS: 99214 ==

== ENCOUNTER → 2024-02-13 13:34 | Outpatient (BNVA) | payer MEDICARE, BC, SELFPAY | PROVIDERS: PCP Family Medicine; Visit Provider Podiatrist Foot & Ankle Surgery | DX: B35.1 Tinea unguium; E11.65 Type 2 diabetes mellitus with hyperglycemia; I73.9 Peripheral vascular disease, unspecified; G62.9 Polyneuropathy, unspecified; L84 Corns and callosities; I83.001 Varicose veins of unspecified lower extremity with ulcer of thigh; L97.918 Non-pressure chronic ulcer of unspecified part of right lower leg with other specified severity; Z79.4 Long term (current) use of insulin | CPT/HCPCS: 11056; 11721; 99213 ==

== ENCOUNTER 2024-02-21 13:55 | Outpatient (CLI) | payer MEDICARE, BC, SELFPAY ==
[2024-02-21 14:39] LABS: Basophils % 0.4 %; Eosinophils # 0.4 10^3/uL (0.0-0.8); Eosinophils % 3.7 %; Hematocrit 41.7 % (36-47); Lymphocytes # 2.4 10^3/uL (0.8-4.8); Lymphocytes % 23.2 %; Mean Corpuscular HGB Conc 30.7 g/dL (30-55); Mean Corpuscular Hemoglobin 32.2 pg (27-33); Mean Corpuscular Volume 104.8 fl (85-98); Mean Platelet Volume 10.6 fL (7.4-10.4); Monocytes # 0.7 10^3/uL (0.2-0.9); Monocytes % 6.5 %; Neutrophils # 6.73 10^3/uL (1.8-7.7); Neutrophils % 65.7 %; Nucleated Red Blood Cells % 0 %; Platelet Count 264 10^3/cmm (157-399); Red Blood Count 3.98 10^6/uL (3.85-5.65); Red Cell Distribution Width 14.9 % (12.1-15.1); White Blood Count 10.25 10^3/uL (3.29-11.43)
[2024-02-21 15:04] LABS: Creatinine Urine, Random 234 mg/dL (28-217); Microalbum Creatinine Ratio Ur 34 mg/dL (0-20); Microalbumin Random Urine 8 ug/dL (0-20)
[2024-02-21 15:10] LABS: Albumin Level 3.8 g/dL (3.5-5.2); Anion Gap 14.1 (5-19); Blood Urea Nitrogen 35 mg/dL (8-23); Carbon Dioxide 31 mmol/L (22-29); Chloride 100 mmol/L (98-107); Glucose 299 mg/dL (65-115); Phosphorus 2.9 mg/dL (2.5-4.5); Potassium 4.1 mmol/L (3.5-5.1); Sodium 141 mmol/L (136-145)
[2024-02-21 15:27] LABS: 25 Hydroxy Vitamin D 42 ng/mL (30-100)
== END 2024-02-21 13:56 | disposition home or self-care (01) ==
LOC: LAB 13:59
PROVIDERS: PCP Family Medicine; Visit Provider Registered Nurse
DX: N18.4 Chronic kidney disease, stage 4 (severe) (principal)
CPT/HCPCS: 36415; 80069; 82044; 82306; 82310; 83970; 85025

== ENCOUNTER → 2024-04-16 13:46 | Outpatient (BNVA) | payer MEDICARE, BC, SELFPAY | PROVIDERS: PCP Family Medicine; Visit Provider Podiatrist Foot & Ankle Surgery | DX: B35.1 Tinea unguium (principal); E11.65 Type 2 diabetes mellitus with hyperglycemia; I73.9 Peripheral vascular disease, unspecified; G62.9 Polyneuropathy, unspecified; L84 Corns and callosities; Z79.4 Long term (current) use of insulin | CPT/HCPCS: 11721 ==

== ENCOUNTER 2024-05-14 14:09 | Outpatient (CLI) | payer MEDICARE, BC, SELFPAY ==
[2024-05-14 14:47] LABS: Basophils # 0.1 10^3/uL (0.0-0.1); Basophils % 0.6 %; Eosinophils # 0.3 10^3/uL (0.0-0.8); Eosinophils % 3.1 %; Hematocrit 43.2 % (36-47); Lymphocytes % 27.3 %; Mean Corpuscular HGB Conc 31.5 g/dL (30-55); Mean Corpuscular Hemoglobin 32.1 pg (27-33); Mean Corpuscular Volume 101.9 fl (85-98); Mean Platelet Volume 10.7 fL (7.4-10.4); Monocytes # 0.9 10^3/uL (0.2-0.9); Monocytes % 8.2 %; Neutrophils # 6.58 10^3/uL (1.8-7.7); Neutrophils % 60.1 %; Nucleated Red Blood Cells % 0.2 %; Platelet Count 292 10^3/cmm (157-399); Red Blood Count 4.24 10^6/uL (3.85-5.65); Red Cell Distribution Width 15.9 % (12.1-15.1); White Blood Count 10.96 10^3/uL (3.29-11.43)
[2024-05-14 15:07] LABS: Albumin Level 3.9 g/dL (3.5-5.2); Anion Gap 16.1 (5-19); Blood Urea Nitrogen 34 mg/dL (8-23); Calcium 9.4 mg/dL (8.5-10.5); Carbon Dioxide 31 mmol/L (22-29); Chloride 100 mmol/L (98-107); Glucose 136 mg/dL (65-115); Phosphorus 2.2 mg/dL (2.5-4.5); Potassium 4.1 mmol/L (3.5-5.1); Sodium 143 mmol/L (136-145)
[2024-05-14 15:08] LABS: Creatinine Urine, Random 63 mg/dL (28-217); Microalbumin Random Urine 3 ug/dL (0-20)
[2024-05-14 15:09] LABS: Microalbum Creatinine Ratio Ur 48 mg/dL (0-20)
[2024-05-14 15:09] LABS: Calcium 9.4 mg/dL (8.5-10.5)
[2024-05-14 15:13] LABS: Parathyroid Hormone 192.8 pg/mL (15-65)
[2024-05-14 15:22] LABS: 25 Hydroxy Vitamin D 41 ng/mL (30-100)
== END 2024-05-14 14:10 | disposition home or self-care (01) ==
LOC: LAB 14:12
PROVIDERS: PCP Family Medicine; Visit Provider Registered Nurse
DX: N18.4 Chronic kidney disease, stage 4 (severe) (principal); N25.81 Secondary hyperparathyroidism of renal origin
CPT/HCPCS: 80069; 82044; 82306; 82310; 83970; 85025

== ENCOUNTER 2024-05-27 14:12 | Outpatient (CLI) | payer MEDICARE, BC, SELFPAY ==
[2024-05-27 14:59] LABS: Alanine Aminotransferase 8 U/L (0-33); Albumin Level 3.5 g/dL (3.5-5.2); Alkaline Phosphatase 82 U/L (35-105); Anion Gap 10.7 (5-19); Aspartate Amino Transferase 11 U/L (0-32); Blood Urea Nitrogen 22 mg/dL (8-23); Calcium 9.2 mg/dL (8.5-10.5); Carbon Dioxide 28 mmol/L (22-29); Chloride 106 mmol/L (98-107); Chol HDL Ratio 3.68 mg/dL (0.0-4.40); Cholesterol 147 mg/dL (0-200); Estmated Average Glucose 226; Glucose 216 mg/dL (65-115); HDL Cholesterol 40 mg/dL (60-100); Hemoglobin A1C 9.5 % (4.0-6.0); LDL Cholesterol Calculated 66 mg/dL (50-129); LDL HDL Ratio 1.65 RATIO (0.00-3.22); Osmolality Calculated 300 mOsm/kg (285-295); Potassium 4.7 mmol/L (3.5-5.1); Sodium 140 mmol/L (136-145); Total Bilirubin 0.3 mg/dL (0.15-1.2); Total Protein 6.5 g/dL (6.6-8.7); Triglycerides 205 mg/dL (0-150)
[2024-05-27 14:59] LABS: Creatinine Urine, Random 270 mg/dL (28-217); Microalbum Creatinine Ratio Ur 37 mg/dL (0-20); Microalbumin Random Urine 10 ug/dL (0-20)
== END 2024-05-27 14:13 | disposition home or self-care (01) ==
LOC: LAB 14:15
PROVIDERS: PCP Family Medicine; Visit Provider Internal Medicine
DX: E11.65 Type 2 diabetes mellitus with hyperglycemia (principal); E78.2 Mixed hyperlipidemia
CPT/HCPCS: 36415; 80053; 80061; 82044; 83036

== ENCOUNTER → 2024-05-29 11:30 | Outpatient (BNVA) | payer MEDICARE, BC, SELFPAY | PROVIDERS: PCP Family Medicine; Visit Provider Internal Medicine | DX: E11.65 Type 2 diabetes mellitus with hyperglycemia (principal); E78.2 Mixed hyperlipidemia; N18.6 End stage renal disease; E11.22 Type 2 diabetes mellitus with diabetic chronic kidney disease; Z79.4 Long term (current) use of insulin | CPT/HCPCS: 99214 ==

== ENCOUNTER → 2024-06-20 13:32 | Outpatient (BNVA) | payer MEDICARE, BC, SELFPAY | PROVIDERS: PCP Family Medicine; Visit Provider Podiatrist Foot & Ankle Surgery | DX: B35.1 Tinea unguium (principal); E11.65 Type 2 diabetes mellitus with hyperglycemia; I73.9 Peripheral vascular disease, unspecified; G62.9 Polyneuropathy, unspecified; L84 Corns and callosities; Z79.4 Long term (current) use of insulin | CPT/HCPCS: 11056; 11721 ==

== ENCOUNTER → 2024-07-18 12:52 | Outpatient (BNVA) | payer MEDICARE, BC, SELFPAY | PROVIDERS: PCP Family Medicine; Visit Provider Internal Medicine | DX: E11.65 Type 2 diabetes mellitus with hyperglycemia (principal); E78.2 Mixed hyperlipidemia; N18.6 End stage renal disease | CPT/HCPCS: 99214 ==

== ENCOUNTER → 2024-08-22 12:42 | Outpatient (BNVA) | payer MEDICARE, BC, SELFPAY | PROVIDERS: PCP Family Medicine; Visit Provider Podiatrist Foot & Ankle Surgery | DX: E11.65 Type 2 diabetes mellitus with hyperglycemia (principal); B35.1 Tinea unguium; L84 Corns and callosities; I73.9 Peripheral vascular disease, unspecified; G62.9 Polyneuropathy, unspecified; Z79.4 Long term (current) use of insulin | CPT/HCPCS: 11056; 11721 ==

== ENCOUNTER 2024-09-24 11:02 | Outpatient (CLI) | payer MEDICARE, BC, SELFPAY ==
[2024-09-24 12:08] LABS: Calcium 9.1 mg/dL (8.5-10.5); Parathyroid Hormone 182.1 pg/mL (15-65)
== END 2024-09-24 11:03 | disposition home or self-care (01) ==
PROVIDERS: PCP Family Medicine; Visit Provider Registered Nurse
DX: N18.4 Chronic kidney disease, stage 4 (severe) (principal)
CPT/HCPCS: 36415; 82310; 83970

== ENCOUNTER 2024-10-14 10:41 | Outpatient (CLI) | payer MEDICARE, BC, SELFPAY ==
[2024-10-14 12:09] LABS: Alanine Aminotransferase 10 U/L (0-33); Albumin Level 3.9 g/dL (3.5-5.2); Alkaline Phosphatase 91 U/L (35-105); Aspartate Amino Transferase 13 U/L (0-32); Blood Urea Nitrogen 36 mg/dL (8-23); Calcium 9.2 mg/dL (8.5-10.5); Carbon Dioxide 32 mmol/L (22-29); Chloride 101 mmol/L (98-107); Chol HDL Ratio 4.12 mg/dL (0.0-4.40); Cholesterol 169 mg/dL (0-200); Globulin 3.5 g/dL (1.3-4.6); Glucose 166 mg/dL (65-115); HDL Cholesterol 41 mg/dL (60-100); LDL Cholesterol Calculated 84 mg/dL (50-129); LDL HDL Ratio 2.05 RATIO (0.00-3.22); Osmolality Calculated 312 mOsm/kg (285-295); Sodium 145 mmol/L (136-145); Total Bilirubin 0.5 mg/dL (0.15-1.2); Total Protein 7.4 g/dL (6.6-8.7); Triglycerides 219 mg/dL (0-150)
[2024-10-14 12:11] LABS: Estmated Average Glucose 206; Hemoglobin A1C 8.8 % (4.0-6.0)
[2024-10-14 12:13] LABS: Creatinine Urine, Random 185 mg/dL (28-217); Microalbum Creatinine Ratio Ur 32 mg/dL (0-20); Microalbumin Random Urine 6 ug/dL (0-20)
== END 2024-10-14 10:42 | disposition home or self-care (01) ==
PROVIDERS: PCP Family Medicine; Visit Provider Internal Medicine
DX: E11.65 Type 2 diabetes mellitus with hyperglycemia (principal); I10 Essential (primary) hypertension
CPT/HCPCS: 36415; 80053; 80061; 82044; 83036

== ENCOUNTER → 2024-10-16 11:23 | Outpatient (BNVA) | payer MEDICARE, BC, SELFPAY | PROVIDERS: PCP Family Medicine; Visit Provider Internal Medicine | DX: E11.65 Type 2 diabetes mellitus with hyperglycemia (principal); E78.2 Mixed hyperlipidemia; N18.6 End stage renal disease | CPT/HCPCS: 99214 ==

== ENCOUNTER → 2024-10-24 13:12 | Outpatient (BNVA) | payer MEDICARE, BC, SELFPAY | PROVIDERS: PCP Family Medicine; Visit Provider Podiatrist Foot & Ankle Surgery | DX: E11.65 Type 2 diabetes mellitus with hyperglycemia (principal); B35.1 Tinea unguium; L84 Corns and callosities; I73.9 Peripheral vascular disease, unspecified; G62.9 Polyneuropathy, unspecified; Z79.4 Long term (current) use of insulin | CPT/HCPCS: 11056; 11721 ==

== ENCOUNTER 2024-12-10 12:07 | Outpatient (CLI) | payer MEDICARE, BC, SELFPAY ==
[2024-12-10 12:27] VITALS: PULSE 73; RESP 18; O2SAT 90
[2024-12-10] MEDS: albuterol 2.5 mg/3 mL Neb INHALATION (12:27)
== END 2024-12-10 12:08 | disposition home or self-care (01) ==
LOC: RT 12:09
PROVIDERS: PCP Family Medicine; Visit Provider Family Medicine
DX: J96.11 Chronic respiratory failure with hypoxia (principal); Z99.81 Dependence on supplemental oxygen
CPT/HCPCS: 94060; 94726; 94729; J7613

== ENCOUNTER → 2024-12-26 12:58 | Outpatient (BNVA) | payer MEDICARE, BC, SELFPAY | PROVIDERS: PCP Family Medicine; Visit Provider Podiatrist Foot & Ankle Surgery | DX: E11.65 Type 2 diabetes mellitus with hyperglycemia (principal); B35.1 Tinea unguium; L84 Corns and callosities; I73.9 Peripheral vascular disease, unspecified; G62.9 Polyneuropathy, unspecified; Z79.4 Long term (current) use of insulin | CPT/HCPCS: 11056; 11721 ==

== ENCOUNTER 2025-01-13 14:23 | Outpatient (CLI) | payer MEDICARE, BC, SELFPAY ==
[2025-01-13 15:11] LABS: Creatinine Urine, Random 33 mg/dL (28-217)
[2025-01-13 15:12] LABS: Microalbum Creatinine Ratio Ur 61 mg/dL (0-20)
[2025-01-13 15:12] LABS: Estmated Average Glucose 220; Hemoglobin A1C 9.3 % (4.0-6.0)
[2025-01-13 15:19] LABS: Alanine Aminotransferase 11 U/L (0-33); Albumin Level 3.7 g/dL (3.5-5.2); Alkaline Phosphatase 87 U/L (35-105); Anion Gap 11.5 (5-19); Aspartate Amino Transferase 12 U/L (0-32); Blood Urea Nitrogen 33 mg/dL (8-23); Calcium 9.0 mg/dL (8.5-10.5); Carbon Dioxide 34 mmol/L (22-29); Chloride 102 mmol/L (98-107); Cholesterol 188 mg/dL (0-200); Globulin 3.4 g/dL (1.3-4.6); Glucose 262 mg/dL (65-115); HDL Cholesterol 38 mg/dL (60-100); Osmolality Calculated 312 mOsm/kg (285-295); Potassium 4.5 mmol/L (3.5-5.1); Sodium 143 mmol/L (136-145); Total Protein 7.1 g/dL (6.6-8.7); Triglycerides 417 mg/dL (0-150)
== END 2025-01-13 14:24 | disposition home or self-care (01) ==
LOC: LAB 14:25
PROVIDERS: PCP Family Medicine; Visit Provider Internal Medicine
DX: N18.6 End stage renal disease (principal); E78.2 Mixed hyperlipidemia; E11.65 Type 2 diabetes mellitus with hyperglycemia
CPT/HCPCS: 36415; 80053; 80061; 82044; 83036; 83721

== ENCOUNTER → 2025-01-17 11:24 | Outpatient (BNVA) | payer MEDICARE, BC, SELFPAY | PROVIDERS: PCP Family Medicine; Visit Provider Internal Medicine | DX: E11.65 Type 2 diabetes mellitus with hyperglycemia (principal); E78.2 Mixed hyperlipidemia; N18.6 End stage renal disease | CPT/HCPCS: 99214 ==

== ENCOUNTER 2025-01-28 14:44 | Outpatient (CLI) | payer MEDICARE, BC, SELFPAY ==
[2025-01-28 16:08] LABS: Hematocrit 39.7 % (36-47); Hemoglobin 12.10 g/dL (11.27-16.99); Mean Corpuscular HGB Conc 30.5 g/dL (30-55); Mean Corpuscular Hemoglobin 31.5 pg (27-33); Mean Corpuscular Volume 103.4 fl (85-98); Nucleated Red Blood Cells % 0 %; Platelet Count 214 10^3/cmm (157-399); Red Blood Count 3.84 10^6/uL (3.85-5.65); White Blood Count 10.24 10^3/uL (3.29-11.43)
[2025-01-28 16:28] LABS: Creatinine Urine, Random 110 mg/dL (28-217)
[2025-01-28 16:29] LABS: Microalbum Creatinine Ratio Ur 45 mg/dL (0-20)
[2025-01-28 17:10] LABS: Albumin Level 3.5 g/dL (3.5-5.2); Blood Urea Nitrogen 32 mg/dL (8-23); Calcium 9.4 mg/dL (8.5-10.5); Carbon Dioxide 30 mmol/L (22-29); Chloride 100 mmol/L (98-107); Glucose 383 mg/dL (65-115); Sodium 141 mmol/L (136-145)
[2025-01-28 17:13] LABS: Calcium 9.3 mg/dL (8.5-10.5)
[2025-01-28 17:52] LABS: Anion Gap 16.0 (5-19); Potassium 5.0 mmol/L (3.5-5.1)
== END 2025-01-28 14:45 | disposition home or self-care (01) ==
PROVIDERS: PCP Family Medicine; Visit Provider Registered Nurse
DX: E55.9 Vitamin D deficiency, unspecified (principal)
CPT/HCPCS: 36415; 80069; 82044; 82306; 82310; 83970; 85025

== ENCOUNTER → 2025-03-11 13:29 | Outpatient (BNVA) | payer MEDICARE, BC, SELFPAY | PROVIDERS: PCP Family Medicine; Visit Provider Podiatrist Foot & Ankle Surgery | DX: E11.65 Type 2 diabetes mellitus with hyperglycemia (principal); B35.1 Tinea unguium; L84 Corns and callosities; I73.9 Peripheral vascular disease, unspecified; G62.9 Polyneuropathy, unspecified; Z79.4 Long term (current) use of insulin | CPT/HCPCS: 11056; 11721 ==

== ENCOUNTER → 2025-03-17 12:40 | Outpatient (BNVA) | payer MEDICARE, BC, SELFPAY | PROVIDERS: PCP Family Medicine; Visit Provider Family Medicine | DX: L03.90 Cellulitis, unspecified (principal) | CPT/HCPCS: 80048; 85025; 86140 ==

== ENCOUNTER → 2025-03-26 13:55 | Outpatient (BNVA) | payer MEDICARE, BC, SELFPAY | PROVIDERS: PCP Family Medicine; Visit Provider Internal Medicine | DX: J96.11 Chronic respiratory failure with hypoxia (principal); Z99.81 Dependence on supplemental oxygen; G47.33 Obstructive sleep apnea (adult) (pediatric); Z99.89 Dependence on other enabling machines and devices; J82.83 Eosinophilic asthma; J98.4 Other disorders of lung; R01.1 Cardiac murmur, unspecified; Z79.01 Long term (current) use of anticoagulants; Z86.718 Personal history of other venous thrombosis and embolism; Z86.711 Personal history of pulmonary embolism; J84.10 Pulmonary fibrosis, unspecified | CPT/HCPCS: 99214; Q3014 ==

== ENCOUNTER → 2025-03-27 15:37 | Outpatient (BNVA) | payer MEDICARE, BC, SELFPAY | PROVIDERS: PCP Family Medicine; Visit Provider Family Medicine | DX: L03.90 Cellulitis, unspecified (principal) | CPT/HCPCS: 85025; 86140 ==

== ENCOUNTER → 2025-03-31 16:02 | Outpatient (BNVA) | payer MEDICARE, BC, SELFPAY | PROVIDERS: PCP Family Medicine; Visit Provider Family Medicine | DX: L03.90 Cellulitis, unspecified (principal) | CPT/HCPCS: 87070 ==

== ENCOUNTER → 2025-04-02 10:38 | Outpatient (BNVA) | payer MEDICARE, BC, SELFPAY | PROVIDERS: PCP Family Medicine; Visit Provider Family Medicine | DX: L03.90 Cellulitis, unspecified (principal) | CPT/HCPCS: 85025; 86140 ==

== ENCOUNTER → 2025-04-10 10:53 | Outpatient (BNVA) | payer MEDICARE, BC, SELFPAY | PROVIDERS: PCP Family Medicine; Visit Provider Family Medicine | DX: L03.90 Cellulitis, unspecified (principal) | CPT/HCPCS: 86140 ==

== ENCOUNTER 2025-04-18 11:35 | Outpatient (CLI) | payer MEDICARE, BC, SELFPAY ==
--- NOTE | 2025-04-18 12:00 | USCV_ITS ---
Gavi Lama Age: 75 Gender: F : 1950 Exam Date: 04/18/2025 11:46 Ordering Phys: Filomena Cox MD Technologist: IVAN [place]am Location[place] [facility] [place] Indication: Aortic Stenosis BP: 124 / 65 HR: 72 Rhythm: Sinus Technical Quality: Adequate MEASUREMENTS (Male / Female) Normal Values 2D ECHO LV Diastolic Diameter PLAX 5.6 cm 4.2 - 5.9 / 3.9 - 5.3 cm IVS Diastolic Thickness 0.8 cm 0.6 - 1.0 / 0.6 - 0.9 cm IVS Systolic Thickness 1.0 cm LVPW Diastolic Thickness 1.0 cm 0.6 - 1.0 / 0.6 - 0.9 cm LVPW Systolic Thickness 1.3 cm LVOT Diameter 2.0 cm LV Ejection Fraction 2D Teich 56.9 % LV Ejection Fraction MOD 4C 53.7 % LV Ejection Fraction MOD 2C 69.4 % LV Ejection Fraction 2C AL 70.3 % LA Diameter 3.4 cm RA Systolic Volume 4C AL 38.0 ml RA Systolic Volume 4C MOD 37.4 ml LA Sys Volume AL 59.7 cm cubed LA Sys Volume Index AL 25.5 cm cubed/m squared Aorta at Sinotubular Diameter 2.7 cm M-MODE LA Ao Ratio MM 1.3 AV Cusp Separation MM 1.6 cm DOPPLER AV Peak Velocity 200.0 cm/s LVOT Peak Velocity 159.0 cm/s AV Area Cont Eq vti 2.4 cm squared AV Area Cont Eq pk 2.4 cm squared MV Peak Velocity 144.0 cm/s MV Area PHT 2.9 cm squared Mitral E to A Ratio 0.7 TV Peak E Velocity 75.0 cm/s PV Peak Velocity 143.0 cm/s FINDINGS Left Ventricle Normal left ventricular size, systolic function and wall thickness with no regional wall motion abnormality. Left ventricular ejection fraction is 70%. Normal left ventricular diastolic function. Right Ventricle Normal right ventricular size and systolic function. Right Atrium Normal right atrial size. Left Atrium Normal left atrial size. IA Septum Normal appearance of the interatrial septum. Mitral Valve Normal mitral valve structure. No mitral valve stenosis or regurgitation. Aortic Valve Aortic valve not well visualized. Mild increase in aortic valve velocity due to increased flow. No evidence of aortic valve stenosis. No aortic valve regurgitation. Tricuspid Valve Indeterminate right ventricular systolic pressure due to lack of tricuspid valve regurgitation velocity. Normal tricuspid valve structure. No tricuspid valve stenosis or regurgitation. Pulmonic Valve Normal pulmonic valve structure. No pulmonic valve stenosis or regurgitation. Pericardium No pericardial effusion. Aorta Normal diameter of the aortic root and ascending thoracic aorta. IVC IVC not well-visualized.Normal IVC diameter. CONCLUSIONS Normal left ventricular size, systolic function and wall thickness with ejection fraction of 70 %. Normal right ventricular size and systolic function. No significant valvular abnormalities. Aortic valve not well visualized. Mild increase in aortic valve velocity by spectral Doppler due to increased flow. No evidence of aortic valve stenosis. No aortic valve regurgitation. Kang Cardona MD, FACC (Electronically Signed) Final Date: 18 April 2025 17:52 S
== END 2025-04-18 11:36 | disposition home or self-care (01) ==
LOC: RAD 11:36
PROVIDERS: PCP Family Medicine; Visit Provider Internal Medicine
DX: J84.10 Pulmonary fibrosis, unspecified (principal); I35.8 Other nonrheumatic aortic valve disorders
CPT/HCPCS: 93306

== ENCOUNTER → 2025-05-06 14:31 | Outpatient (BNVA) | payer MEDICARE, BC, SELFPAY | PROVIDERS: PCP Family Medicine; Visit Provider Internal Medicine | DX: J96.11 Chronic respiratory failure with hypoxia (principal); Z99.81 Dependence on supplemental oxygen; G47.33 Obstructive sleep apnea (adult) (pediatric); J44.89 Other specified chronic obstructive pulmonary disease; J82.83 Eosinophilic asthma; R01.1 Cardiac murmur, unspecified; J30.89 Other allergic rhinitis; Z79.01 Long term (current) use of anticoagulants; Z86.711 Personal history of pulmonary embolism; Z86.718 Personal history of other venous thrombosis and embolism | CPT/HCPCS: 85025; 86140; 99214; Q3014 ==

== ENCOUNTER 2025-05-12 12:30 | Outpatient (CLI) | payer MEDICARE, BC, SELFPAY ==
[2025-05-12 13:36] LABS: Estmated Average Glucose 223; Hemoglobin A1C 9.4 % (4.0-6.0)
[2025-05-12 13:41] LABS: Creatinine Urine, Random 51 mg/dL (28-217)
[2025-05-12 13:43] LABS: Microalbum Creatinine Ratio Ur 59 mg/dL (0-20)
[2025-05-12 13:46] LABS: Alanine Aminotransferase 10 U/L (0-33); Albumin Level 3.7 g/dL (3.5-5.2); Alkaline Phosphatase 75 U/L (35-105); Anion Gap 13.1 (5-19); Aspartate Amino Transferase 11 U/L (0-32); Blood Urea Nitrogen 27 mg/dL (8-23); Calcium 8.8 mg/dL (8.5-10.5); Carbon Dioxide 29 mmol/L (22-29); Chloride 103 mmol/L (98-107); Cholesterol 116 mg/dL (0-200); Globulin 3.2 g/dL (1.3-4.6); Glucose 216 mg/dL (65-115); HDL Cholesterol 39 mg/dL (60-100); NT Pro B Type Natriuretic Pept 224 pg/mL (0-125); Osmolality Calculated 304 mOsm/kg (285-295); Potassium 4.1 mmol/L (3.5-5.1); Sodium 141 mmol/L (136-145); Total Protein 6.9 g/dL (6.6-8.7); Triglycerides 204 mg/dL (0-150)
== END 2025-05-12 12:31 | disposition home or self-care (01) ==
LOC: LAB 12:32
PROVIDERS: Internal Medicine; PCP Family Medicine; Visit Provider Internal Medicine
DX: E11.65 Type 2 diabetes mellitus with hyperglycemia (principal); R06.00 Dyspnea, unspecified; R06.89 Other abnormalities of breathing
CPT/HCPCS: 80053; 80061; 82044; 83036; 83880

== ENCOUNTER → 2025-05-21 13:30 | Outpatient (BNVA) | payer MEDICARE, BC, SELFPAY | PROVIDERS: PCP Family Medicine; Visit Provider Podiatrist Foot & Ankle Surgery | DX: E11.65 Type 2 diabetes mellitus with hyperglycemia (principal); B35.1 Tinea unguium; L84 Corns and callosities; I73.9 Peripheral vascular disease, unspecified; G62.9 Polyneuropathy, unspecified; Z79.4 Long term (current) use of insulin | CPT/HCPCS: 11056; 11721 ==

== ENCOUNTER 2025-05-28 13:20 | Outpatient (CLI) | payer MEDICARE, BC, SELFPAY ==
[2025-05-28 14:21] LABS: Albumin Level 3.7 g/dL (3.5-5.2); Anion Gap 13.6 (5-19); Blood Urea Nitrogen 37 mg/dL (8-23); Calcium 9.0 mg/dL (8.5-10.5); Carbon Dioxide 27 mmol/L (22-29); Chloride 107 mmol/L (98-107); Glucose 86 mg/dL (65-115); Potassium 4.6 mmol/L (3.5-5.1); Sodium 143 mmol/L (136-145)
[2025-05-28 14:24] LABS: Calcium 9.1 mg/dL (8.5-10.5)
[2025-05-28 14:50] LABS: Creatinine Urine, Random 142 mg/dL (28-217); Microalbum Creatinine Ratio Ur 28 mg/dL (0-20)
== END 2025-05-28 13:21 | disposition home or self-care (01) ==
LOC: LAB 13:21
PROVIDERS: PCP Family Medicine; Visit Provider Registered Nurse
DX: N18.4 Chronic kidney disease, stage 4 (severe) (principal)
CPT/HCPCS: 36415; 80069; 82044; 82310; 83970; 85025; 86140